=== PATIENT | male | born 1940 | race Caucasian/White ===

== ENCOUNTER 2024-08-10 12:20 | Emergency (ER) | payer MEDICARE, SELFPAY ==
[2024-08-10] VITALS (15 sets, daily range): BP systolic 137–161; BP diastolic 70–85; PULSE 60–67; RESP 12–20; TEMP 36.4; O2SAT 99–100
--- NOTE | ~2024-08-10 | CT_ITS ---
EXAMINATION: CT brain wo con DATE: 08/10/2024 13:06 INDICATION: Double vision TECHNIQUE: Computed tomography (CT) of the head was performed without intravenous contrast. Sagittal and coronal reconstructions were performed. The mA was adjusted according to patient size. Iterative reconstruction technique was employed. The dose-length product was 756.67 mGy-cm. 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 No acute intracranial hemorrhage, acute infarction or abnorm al extra axial fluid collection. There is moderate scattered white matter hypoattenuation consistent with chronic small vessel ischemic disease.. Symmetric prominence of the sulci consistent with modera te age-appropriate diffuse cerebral volume loss. Ventricles are normal and symmetric. No mass/mass e ffect. The orbits, paranasal sinuses and mastoid air cells are normal. Intracranial calcified cerebra l atherosclerosis is noted. IMPRESSION: 1. Aging brain with small old lacunar infarct at the right insula. No acute intracranial process. Reviewed, dictated and finalized at location A. IMPRESSION: 1. Aging brain with small old lacunar infarct at the right insula. No acute int racranial process.
--- NOTE | ~2024-08-10 | XR_ITS ---
EXAMINATION: XR chest 1V portable DATE: 08/10/2024 13:26 INDICATION: Dizziness TECHNIQUE: frontal view of the chest was obtained. COMPARISON: Chest radiograph dated 08/21/[address] dated FINDINGS: The lungs are clear with no focal airspace opacities, pulmonary edema, pleural effusion or pneumothor ax. The cardiomediastinal silhouette is within normal limits for AP technique. Dual lead pacemaker se en with leads projecting over the expected locations of the right atrium and right ventricle. IMPRESSION: 1. No acute cardiopulmonary disease. Reviewed, dictated and finalized at location A.
--- NOTE | 2024-08-10 12:33 | ECG_ITS ---
Test Date: 2024-08-10 12:49:37 Measurements Intervals [place] Rate: 60 P: 0 MO: 0 QRS: -48 QRSD: 213 T: 140 QT: 516 QTc: 518 Interpretive Statements ELECTRONIC VENTRICULAR PACEMAKER ABNORMAL RHYTHM ECG No previous ECG available for comparison Electronically Signed On 08-10-2024 15:34:23 CDT by Jesus Cole M.D.
--- NOTE | 2024-08-10 12:36 | ED.DIZZY ---
HPI - Dizziness General Chief Complaint: Dizziness Stated Complaint: Dizziness-double vision, slow speech Time Seen by Provider: 08/10/24 12:33 History of Present Illness HPI Narrative: 84-year-old male with a past medical history including chronic atrial fibrillation on Eliquis, hypertension, pacemaker. No history of diabetes. Patient presents to the emergency department chief complaint of blurry vision out of both eyes. Symptoms going on for several days according to the patient and family member. Patient denies any head trauma or injury. Did have a skin lesion biopsied several days ago and he mentioned the symptoms to his daughter. Patient was brought back for evaluation of blurry vision and also states he is feeling dizziness but denies any room spinning sensations. No chest pain or shortness a breath, nausea, vomiting, headache, abdominal pain or back pain. No sensory changes, no facial paralysis. Was otherwise in her normal state of health. Did take his Eliquis this morning. Related Data Allergies Allergy/AdvReac Type Severity Reaction Status Date / Time Iodinated Contrast Media Allergy Intermediate Rash Verified 08/10/24 12:54 Sulfa (Sulfonamide Allergy Intermediate Rash Verified 08/10/24 12:54 Antibiotics) Review of Systems Review of Systems: As reviewed above in HPI Exam Narrative: GENERAL: [Well-appearing, well-nourished, and in no acute distress.] HEAD: [Normocephalic, atraumatic.] EYES: [PERRLA and EOMI.] ENT: Nares clear, no rhinorrhea or epistaxis. Mucous membranes moist. NECK: Supple. CHEST: [Clear to auscultation. No respiratory distress.] HEART: [Regular rate and rhythm]. No murmur heard. [Normal peripheral pulses.] ABDOMEN: [Soft, nondistended], [nontender], [No rigidity or guarding] EXTREMITIES: Normal range of motion. [No edema.] SKIN: Warm, dry, no rash. NEURO: [No focal deficits]. Alert and oriented [x3.]. NIH stroke scale 0. Full peripheral clay, normal strength and sensation throughout both arms and legs, no ataxia in the arms or legs, answers all questions appropriately, no aphasia or dysphagia, no dysarthria. PSYCH: [Normal mood and affect.] Course Vital Signs Vital signs: Vital Signs Temperature 36.4 C L 08/10/24 12:37 Pulse Rate 62 08/10/24 12:37 Respiratory Rate 20 08/10/24 12:37 Blood Pressure 137/72 08/10/24 12:37 Pulse Oximetry 100 08/10/24 12:37 Oxygen Delivery Room Air 08/10/24 12:37 Temperature 36.4 C L 08/10/24 12:37 Pulse Rate 61 08/10/24 16:45 Respiratory Rate 19 08/10/24 16:45 Blood Pressure 161/85 H 08/10/24 16:45 Pulse Oximetry 100 08/10/24 16:45 Oxygen Delivery Room Air 08/10/24 12:37 MDM - Dizziness MDM Narrative Medical decision making narrative: 84-year-old male with history of chronic AFib on anticoagulation with Eliquis, hypertension, pacemaker. Patient presents to the emergency department with chief complaint of some blurry vision of both eyes associated some dizziness. Denies any room spinning sensations, headache, nausea, vomiting, trauma neck pain, abdominal pain, back pain, chest pain. He was otherwise in his normal state of health. Daughter was worried about his blurry vision that could be potentially a stroke but visual deficits other or both eyes and he has an NIH stroke scale 0 during my initial assessment at time arrival. Symptoms going on for several days. Patient did mention to his daughter to make him an eye appointment as he was having visual problems a few days ago but this was not established yet. Patient does have what he describes as some blurriness to his distal vision and denies any history of glaucoma but daughter thinks he has cataracts. No ocular surgeries in the past. His stroke assessment is unremarkable with an NIH is 0, brought back in to room 13. For evaluation. Suspicion presently is for potential electrolyte disturbances, dehydration, diabetes, hypertension, less likely intracranial pathology such as stroke, bleed or mass. Your infection or other infectious process possible. Dysrhythmia possible especially with his history of AFib. CBC, CMP, troponin, EKG, chest x-ray, urinalysis and CT of the head was ordered. Patient was placed on surveillance monitor and re-evaluated frequently. Patient's workup was reassuring there is no leukocytosis or significant anemia. Normal platelet count. Normal INR, electrolytes are largely unremarkable, minor hypokalemia 3.2 but not significant. Normal glucose, normal alk-phos, ALT and AST, mildly elevated bilirubin. Negative troponin. Normal TSH. Urinalysis has some white blood cells and leukocyte esterase as well as some urinary casts the patient has no convincing signs or symptoms of urinary infection so we will elect not to treat this at this time. CT scan shows aging brain but no acute intracranial process. Small old lacunar infarct. Chest x-ray shows no acute cardiopulmonary disease. EKG shows ventricular paced rhythm, no Sgarbossa criteria for acute SC. Patient remains without any acute neurological symptoms and can be safely discharged home with follow-up with his PCP and encouraged to follow with an mobile application tester or materials tech for his visual concerns. Family agreeable with this and comfortable with the plan. Medical Records Attestation: I reviewed the patient's medical records. Lab Data Attestation: I reviewed the patient's lab results. 08/10/24 12:47 08/10/24 12:47 Labs: Lab Results 08/10/24 08/10/24 Range/Units 12:47 15:07 WBC 6.5 (4.5-10.0) K/mm3 RBC 3.78 L (4.6-6.20) M/mm3 Hgb 12.0 L (14.0-18.0) g/dL Hct 38.4 L (42.0-52.0) % MCV 101.6 H (80-100) fl MCH 31.7 (26-34) pg MCHC 31.3 L (32-36) g/dl RDW 13.2 (11.5-14.5) % Plt Count 189 (150-375) k/mm3 MPV 10.1 (7.4-10.4) fl Immature Gran % (Auto) 0.2 (0-0.5) % Neut % (Auto) 70.7 (45.5-73.1) % Lymph % (Auto) 17.7 L (18.3-44.2) % [place] % (Auto) 8.8 H (2.6-8.5) % Eos % (Auto) 2.3 (0-4.4) % Baso % (Auto) 0.3 (0.2-1.2) % Lymph # (Auto) 1.15 (0.9-3.2) K/mm3 [place] # (Auto) 0.6 (0.1-0.6) K/mm3 Eos # (Auto) 0.2 (0-0.3) K/mm3 Baso # (Auto) 0.0 (0.0-0.1) K/mm3 Abs Immat Gran (auto) 0.01 (0.00-0.031) K/mm3 Absolute Neuts (auto) 4.6 (1.3-6.7) K/mm3 Absolute Nucleated RBC 0.000 (0.0-0.012) K/mm3 Nucleated RBC % 0.0 (0.0-0.2) % PT 16.7 H (11.1-14.7) Seconds INR 1.3 APTT 32.1 (22.3-36.8) Seconds Sodium 140 (137-145) mmol/L Potassium 3.2 L (3.4-5.0) mmol/L Chloride 102 (98-107) mmol/L Carbon Dioxide 30 (22-30) mmol/L Anion Gap 8 (4-12) mmol/L BUN 20 (9-20) mg/dL Creatinine 0.91 (0.7-1.3) mg/dL Estim Creat Clear Calc 61 ml/min Estimated GFR > 60 (59 - ) Glucose 118 H (65-110) mg/dL Calcium 8.7 (8.4-10.2) mg/dL Total Bilirubin 1.7 H (0.2-1.3) mg/dL AST 22 (17-59) U/L ALT 10 (6-50) U/L Alkaline Phosphatase 97 (38-126) U/L Troponin I < 0.012 (0.000-0.034) ng/mL Total Protein 6.0 L (6.3-8.2) g/dL Albumin 3.6 (3.5-5.1) g/dL TSH (Reflex) 0.854 (0.465-4.68) uIU/mL Urine Color Yellow (Yellow) Urine Appearance Clear (Clear) Urine pH 5.5 (5.0-9.0) Ur Specific [place] 1.015 (1.001-1.035) Urine Protein Negative (Negative) mg/dL Urine Glucose (UA) Negative (Negative) mg/dL Urine Ketones Trace H (Negative) mg/dL Ur Blood (Man) Negative (Negative) Urine Nitrate Negative (Negative) Urine Bilirubin Negative (Negative) Urine Urobilinogen 1.0 (<2.0) mg/dL Leukocyte Esterase Rfl 1+ H (Negative) ANA/UL Urine RBC 0-2 (0-2) /hpf Urine WBC 6-10 H (0-3) /hpf Ur Squamous Epith Cells None seen (Few) /hpf Urine Bacteria None seen /hpf Urine Casts 6-10 Hyaline Casts Present (None) /lpf Imaging Data Attestation: I personally reviewed and interpreted this imaging study as follows: My impression: Impressions Head CT 08/10/24 13:11 IMPRESSION: 1. Aging brain with small old lacunar infarct at the right insula. No acute intracranial process. Chest X-Ray 08/10/24 13:30 IMPRESSION: 1. No acute cardiopulmonary disease. Discharge Plan Discharge Clinical Impression: Blurred vision, bilateral Patient Disposition: Home Condition: Stable Instructions: Antibiotic Form, Blurred Vision (ED) Additional Instructions: Follow-up with an materials tech or mobile application tester. Return with any emergent concerns. Your CT scan shows no acute findings, laboratory studies are all reassuring, cardiac workup was unremarkable. No evidence of diabetes, no signs of infection. Return with any emergent concerns such as unilateral facial weakness, numbness in the arms, inability to walk, loss of consciousness, facial droop, vision loss, weakness in one side of the body. Patient Language: Bhutanese Follow-up/Referrals: Jonas,Min Wilkes MD [Primary Care Provider] - Time of Disposition: 16:18
[2024-08-10 12:54] LABS: Basophils Percent Auto 0.3 % (0.2-1.2); Eosinophils Absolute Auto 0.2 K/mm3 (0-0.3); Eosinophils Percent Auto 2.3 % (0-4.4); Hematocrit 38.4 % (42.0-52.0); Immature Granulocyte Absolute 0.01 K/mm3 (0.00-0.031); Immature Granulocyte Percent A 0.2 % (0-0.5); Lymphocytes Absolute Auto 1.15 K/mm3 (0.9-3.2); Lymphocytes Percent Auto 17.7 % (18.3-44.2); Mean Corpuscular HGB Conc 31.3 g/dl (32-36); Mean Corpuscular Hemoglobin 31.7 pg (26-34); Mean Corpuscular Volume 101.6 fl (80-100); Mean Platelet Volume 10.1 fl (7.4-10.4); Monocytes Absolute Auto 0.6 K/mm3 (0.1-0.6); Monocytes Percent Auto 8.8 % (2.6-8.5); Neutrophils Absolute Auto 4.6 K/mm3 (1.3-6.7); Neutrophils Percent Auto 70.7 % (45.5-73.1); Platelet Count Result 189 k/mm3 (150-375); Red Blood Count 3.78 M/mm3 (4.6-6.20); Red Cell Distribution Width 13.2 % (11.5-14.5); White Blood Count 6.5 K/mm3 (4.5-10.0)
--- OUTSIDE RECORDS SUMMARY | 2024-08-10 12:57 | XMS_ITS ---
Author Organization [facility] Address [address] [place] [address] Care Team Providers Care Database Administrator Name Role Phone Min Mcdaniel MD Primary Care Provider [phone] Porfirio Ronquillo MD Unavailable [phone] Sanjeev León MD Unavailable Porfirio Ronquillo MD Unavailable Carlos Moya MD Unavailable Gabriel Tanner OD Unavailable Active Problems Problem Noted Date Diagnosed Date Parkinson's disease 09/28/2023 CATRACHITO (obstructive sleep apnea) 08/31/2023 Acute kidney failure, unspecified 08/12/2023 ANJANA (acute kidney injury) 08/10/2023 Orthostatic hypotension 08/10/2023 Chronic atrial fibrillation 08/10/2023 Near syncope 08/09/2023 Fall 08/09/2023 Acquired absence of other sp ecified parts of digestive tract 04/03/2023 Chronic kidney disease, unspecified 04/03/2023 Heart failure, unspecified 04/03/2023 Hypertensive heart and chron ic kidney disease with heart failure and stage 1 through stage 4 chronic kidney disease, or unspecified chronic kidney disease 04/03/2023 Nonrheumatic aortic (valve) insufficiency 01/01/ 2024 Polyosteoarthritis, unspecified 04/03/2023 Pure hypercholesterolemia, unspecified 4 Permanent atrial fibrillation 04/03/2023 Atrioventricular block, complete 04/03/2023 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 Assessment & Plan (04/20/2020 1:55 PM MEAT MOLDER): Well controlled on current statin therapy diet, continue Iliac artery aneurysm, right 01/22/2020 Assessment & Plan (01/22/2020 11:42 AM CDT): Stable. Repeat Duplex in one year. Ectatic abdominal aorta 01/22/2020 Assessment & Plan (01/22/2020 11:42 AM CDT): Associated with chronic distal aortic dissection. Stable. Repeat aortic Duplex in one year. Asymptomatic bilateral carotid artery stenosis 1 Assessment & Plan (01/22/2020 11:43 AM CDT): Minimal and asymptomatic. Repeat carotid Doppler in two years for observation. Chronic diastolic CHF (congestive heart failure) 10/21/2019 Assessment & Plan (04/20/2020 1:54 PM MEAT MOLDER): No exertional symptoms but some orthopnea, check BMP. Continue current diuretic regimen pending follow-up BMP. Assessment & Plan (10/21/2019 1:45 PM CDT): Symptomatic in improvement with furosemide, over, appears to be a bit on the dry side. Will switch him to every other day. Coronary artery disease of n ative artery of [place] heart with stable angina pectoris 10/31/2018 Assessment & Plan (10/19/2020 1:11 PM CDT): No angina on current therapy the setting of angiographically moderate multivessel disease. Continue statin Assessment & Plan (04/20/2020 1:55 PM MEAT MOLDER): No angina on current medical therapy setting of moderate multivessel coronary disease, continue aspirin statin Assessment & Plan (10/21/2019 1:45 PM CDT): No angina on current medical therapy the setting previously moderate multivessel coronary disease. Continue aspirin. Statin Assessment & Plan (10/31/2018 10:34 AM CDT): Patient underwent a cardiac catheterization October 16, 2018 which revealed a moderately elevated LVEDP of 29, EF 55%, and moderate multivessel coronary artery disease. At that time medical management was recommended with the addition of diuretic therapy. His verapamil was discontinued and he was started on metoprolol 50 mg XL daily and Lasix 40 mg daily. He is also currently taking aspirin, enalapril, and pravastatin. Will switch to high-intensity statin therapy with Crestor 20 mg daily. Continue current therapy. Dyspnea on exertion 10/31/2018 Assessment & Plan (10/31/2018 10:43 AM CDT): Patient reports improvement of his dyspnea on exertion since starting diuretic therapy. He reports he was taking 40 mg of Lasix daily. However, he noticed he had diarrhea after the initiation of this medication. He tells me he was taking 20 mg in the morning and 20 mg in the evening, which seemed to help with his upset stomach. He reports a reduction in lower extremity edema, abdominal edema, and dyspnea on exertion. We talked at length about use of diuretic therapy. At this time, we discussed reducing his dose to 20 mg daily. If he feels as if his abdominal swelling, lower extremity edema, or shortness of breath returns he can increase his dosing to b.i.d as needed. Patient was instructed to undergo a BMP last week. However, when reviewing these results in [facility] it is noted that the lab was canceled due to the specimen spilling in transit. Will obtain BMP today to evaluate electrolytes and renal function. Nonspecific abnormal function study, cardiovascu lar 10/11/2018 Overview (10/11/2018): Added automatically from request for surgery [id number] Pacemaker 08/28/2018 Overview (08/28/2018): [employer] DDD [place] MRI pacemaker implanted on 08/27/18 for CHB. [place] - [employer] Complete heart block 08/26/2018 Assessment & Plan (10/19/2020 1:11 PM CDT): Doing well permanent pacing Assessment & Plan (04/20/2020 1:54 PM MEAT MOLDER): Doing well permanent pacing Assessment & Plan (10/21/2019 1:45 PM CDT): Doing well permanent pacing. Hopefully will have improved exercise tolerance with the addition rate responsiveness. Assessment & Plan (10/31/2018 10:34 AM CDT): Patient underwent a dual chamber pacemaker August 27, 2018. His device is functioning properly. Assessment & Plan (10/08/2018 2:22 PM CDT): Post permanent pacemaker, doing well, device interrogation follow Renal cell carcinoma of right kidney 08/26/2018 Primary hypertension 07/03/2018 Assessment & Plan (10/31/2018 10:35 AM CDT): Patient remains hypertensive on this visit with an initial BP of 166/80 and subsequent BP 160/78. He reports he has not taken his metoprolol this morning. He generally takes his medication around 11:00 am with his first meal of the day. I asked the patient to keep a log of blood pressures at home and call the office in 2 weeks with readings. Continue enalapril and metoprolol. Symptomatic cholelithiasis 07/03/2018 Benign prostatic hyperplasia with weak urinary s tream 07/03/2018 Alternating constipation and diarrhea 07/03/2018 Elevated parathyroid hormone 09/20/2017 BPH (benign prostatic hyperplasia) 02/02/2017 Elevated PSA 02/02/2017 Vitamin D deficiency 02/02/2017 Hyperlipidemia 02/02/2017 Essential hypertension 02/02/2017 Overview (07/12/2024): Last Assessment & Plan: Patient remains hypertensive on this visit with an initial BP of 166/80 and subsequent BP 160/78. He reports he has not taken his metoprolol this morning. He generally takes his medication around 11:00 am with his first meal of the day. I asked the patient to keep a log of blood pressures at home and call the office in 2 weeks with readings. Continue enalapril and metoprolol. Dizziness Current Treatment and Therapy Plans No current plan information found. Past Treatment and Therapy Plans No past plan information found. Lifetime Dose Tracking * Chemical Lifetime Dose Automatic Entry Manual Entr y Air kerma at the reference point (Ka,r) 655 mGy 0 mGy 655 mGy DLP 215 mGycm 215 mGycm 0 mGycm Resolved Problems Problem Noted Date Diagnosed Date Resolved Date Asymptomatic stenosis of left carotid artery 9 01/22/2020 Assessment & Plan (01/16/2019 9:57 AM CDT): Monitor with annual Doppler study. Will coordinate his visits to include aortic/iliac scan + carotid Doppler scan. He'll return in Fall 2019 for both studies. Aneurysm of common iliac artery 07/25/2018 01/22/2020 Assessment & Plan (01/16/2019 9:56 AM CDT): Stable right KIRILL aneurysm. Monitor with repeat Duplex scan in one year.
--- OUTSIDE RECORDS SUMMARY | 2024-08-10 12:57 | XMS_ITS | Clinical Summary ---
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 Gender Identity Not on file Sexual Orientation Not on file Plan of Treatment Health Maintenance Due Date Last Done Comments Hepatitis C Virus (HCV) Screening 1940 TdaP Immunization 1940 Pneumococcal Immunization (5 0+ years) (1 of 1 - PCV) 1989 Zoster Immunization (1 of 2) 1989 Respiratory Syncytial Virus (RSV) Immunization (Adult) (1 - 1-dose 75+ series) 2014 Influenza Immunization (#1) 2023 SARS-COV-2 Immunization ( season) 2023 Hepatitis B Immunization Aged Out No longer eligible based on patient's age to complete this topic Meningococcal Immunization (ACWY) Aged Out No longer eligible based on patient's age to complete this topic Rotavirus Immunization Aged Out No lo nger eligible based on patient's age to complete this topic
--- OUTSIDE RECORDS SUMMARY | 2024-08-10 12:57 | XMS_ITS | Encounter Summary ---
Author Organization [facility] Address [facility] [place] [address] Care Team Providers Care Transfer Engineer Name Role Phone Min Mcdaniel MD Primary Care Provider [phone] Alicia Davis GUIDE WINDER Unavailable [phone] Encounter Details Date Type Department Care Team (Late Contact Info) Description 09/28/2022 MyChart Message Enc [facility] Medical [facility] [address] [place], [place] [id number] [facility] Provider Air Quality Message Social History Tobacco Use Types Packs/Day Years Used Date Smoking Tobacco: Former Cigarettes 0 04/03/1962 - 04/03/1977 Smokeless Tobacco: Never Alcohol Use Standard Drinks/Week Comments Not Currently 0 (1 standard drink = 0.6 oz pur e alcohol) AUDIT-C Answer Date Recorded Frequency of Alcohol Consumption Never 04/05/2018 Average Number of Drinks Not on file 019 Frequency of Binge Drinking Not on file 06/2018 PHQ-2 Answer Date Recorded Patient Health Questionnaire-2 Score 0 04/05/2022 Sex and Gender Information Value Date Recorded Sex Assigned at Male 04/05/2018 2:26 PM GUEST RELATIONS ASSOCIATE Legal Sex Male 7:26 PM CDT Gender Identity Male 04/05/2018 2:26 PM GUEST RELATIONS ASSOCIATE Sexual Orientation Straight 04/05/2018 2: 26 PM GUEST RELATIONS ASSOCIATE documented as of this encounter Plan of Treatment Upcoming Encounters Date Type Department Care Team (Late Contact Info) Description 08/12/2024 8:40 AM CDT Laboratory Only [facility] Medical [facility] [place] [phone] Min Mcdaniel MD [address] [place] [address] 01/06/2025 8:40 AM CDT Office Visit [facility] [address] [facility], [address] [place] [address] Jesusita Cespedes MD [address] [place] [address] 02/10/2025 10:00 AM GUEST RELATIONS ASSOCIATE Office Visit [facility] [place] [address] [place] [address] [place] [address] [place] [id number] documented as of this encounter Goals Goal Patient Goal Type Associated Problems Recent Progress Patient-Stated? Author Establish Plan for Symptom Monitoring CHF Lifestyle On track(2022 2:12 PM GUEST RELATIONS ASSOCIATE) No Jackie Matthew, RN Note: CHF: Patient will recognize symptoms of CHF and report to provider. Daily weight. Report weight gain of > 3 lbs overnight or > 5 lbs in a week Maintain 48 oz fluid restriction Call physician if you experience worsening shortness of breath, edema, fatigue, or cough Take medications as prescribed. Follow up with physician appointments as scheduled. Don't stop taking any of your medications or start taking any medications without discussing with your provider. Establish Plan for Symptom Monitoring Afib Lifestyle On track(2022 2:12 PM GUEST RELATIONS ASSOCIATE) Jackie Obregon, RN Note: Atrial Fibrillation: Patient will recognize symptoms of atrial fibrillation and report to physician should they occur. Take your medicines exactly as directed. Don't skip doses. Learn to take your own pulse. Keep a record of your results. Ask your doctor which pulse rates mean that you need medical attention. Limit your intake of coffee, tea, cola, and other drinks with caffeine. Talk with your doctor about whether you should cut out caffeine. Don't take boja-zbn-[id number] medicines that have caffeine in them. Also avoid medicines with pseudoephedrine. Let your doctor know what medicines you take, including prescription and bfty-abv-wftffpa medicines, as well as any supplements. They interfere with some medicines given for AFib. Establish Plan for Symptom Monitoring COPD Lifestyle On track(2022 2:12 PM GUEST RELATIONS ASSOCIATE) Jackie Obregon, RN Note: COPD: Patient will recognize symptoms of COPD exacerbation and report to the physician. If severe, patient will seek emergent treatment at [facility] or ER. Notify your provider if you have any of the following symptoms: Worsening shortness of breath at rest or with activity Frequent coughing, productive or nonproductive Wheezing Noisy breathing Tightness in the chest Tiredness Weight loss. Follow up with your provider as scheduled Take your medications as prescribed Do not stop any of your medications without notifying provider documented as of this encounter Visit Diagnoses Not on filedocumented in this encounter Care Teams Transfer Engineer Relationship Specialty Start Date End Date Min Mcdaniel MD [address] [place] [address] [phone] PCP - General INTERNAL MEDICINE 01/31/18 Alicia Davis, GUIDE WINDER [address] [place] [address] Seconds Grader [employer] OFFICER 07/07/22 documented as of this encounter
--- OUTSIDE RECORDS SUMMARY | 2024-08-10 12:57 | XMS_ITS | Encounter Summary ---
Author Organization [facility] - [facility] Address [facility] [place] [address] Care Team Providers Care Director Of Partner Marketing Name Role Phone Min Mcdaniel MD Primary Care Provider [phone] Alicia Davis MAT MAKER Unavailable Encounter Details Date Type Department Care Team (Late Contact Info) Description 12/22/2023 TapToLearn Message Enc [facility] Multispecialty Care - [address], [address] [place] [address] Juliette, [facility] Provider MRI results Social History Tobacco Use Types Packs/Day Years Used Date Smoking Tobacco: Former Cigarettes 0 04/03/1962 - 04/03/1977 Smokeless Tobacco: Never Comments:Non smoker Alcohol Use Standard Drinks/Week Comments Not Currently 0 (1 standard drink = 0.6 oz pur e alcohol) AUDIT-C Answer Date Recorded Frequency of Alcohol Consumption Never 04/05/2018 Average Number of Drinks Not on file 019 Frequency of Binge Drinking Not on file 06/2018 PHQ-2 Answer Date Recorded Patient Health Questionnaire-2 Score 0 04/26/2023 Sex and Gender Information Value Date Recorded Sex Assigned at Male 04/05/2018 2:26 PM TABLE FILLER Legal Sex Male 7:26 PM CDT Gender Identity Male 04/05/2018 2:26 PM TABLE FILLER Sexual Orientation Straight 04/05/2018 2: 26 PM TABLE FILLER documented as of this encounter Plan of Treatment Upcoming Encounters Date Type Department Care Team (Late Contact Info) Description 08/12/2024 8:40 AM CDT Laboratory Only [facility] - [place] [place] [address] [place] [address] [place] [address] 01/06/2025 8:40 AM CDT Office Visit [facility] - [facility] [address] [facility], [address] [place] [address] Jesusita Cespedes MD [address] [place] [address] 02/10/2025 10:00 AM TABLE FILLER Office Visit [facility] - [address] [address] Min Mcdaniel MD [address] [place] [address] documented as of this encounter Goals Goal Patient Goal Type Associated Problems Recent Progress Patient-Stated? Author Establish Plan for Symptom Monitoring CHF Lifestyle On track(2022 2:12 PM TABLE FILLER) No Jackie Matthew RN Note: CHF: Patient will recognize symptoms [...] Monitoring Afib Lifestyle On track(2022 2:12 PM TABLE FILLER) No Jackie Matthew RN Note: Atrial Fibrillation: Patient will recognize [...] you should cut out caffeine. Don't take ujfo-qjy-kiyhihv medicines that have caffeine in them. Also avoid medicines with pseudoephedrine. Let your doctor know what medicines you take, including prescription and rveq-wyd-hbthomd medicines, as well as any supplements. They interfere with some medicines given for AFib. Establish Plan for Symptom Monitoring COPD Lifestyle On track(2022 2:12 PM TABLE FILLER) Jackie Obregon RN Note: COPD: Patient will recognize symptoms [...] on filedocumented in this encounter Care Teams Director Of Partner Marketing Relationship Specialty Start Date End Date Min Mcdaniel MD [address] [place] [address] PCP - General INTERNAL MEDICINE 01/31/18 Alicia Davis, MAT MAKER [address] [place] [address] Car Wash Attendant HOUSE DIRECTOR 07/07/22 documented as of this encounter
--- OUTSIDE RECORDS SUMMARY | 2024-08-10 12:57 | XMS_ITS | Encounter Summary ---
Author Organization [facility] Address [address] [place] [address] Phone Care Team Providers Care Manager Of Employee Relations Name Role Phone Min Mcdaniel MD Primary Care Provider Porfirio Ronquillo MD Unavailable Sanjeev León MD Unavailable Porfirio Ronquillo MD Unavailable Carlos Moay MD Unavailable [phone] Gabriel Tanner OD Unavailable Encounter Details Date Type Department Care Team (Late st Contact Info) Description 07/12/2024 Results Follow-Up [facility] [address] [place] [address] Nabil Wagner MD [address] [facility] [address] [place] [address] Social History Tobacco Use Types Packs/Day Years Used Date Smoking Tobacco: Former Cigarettes 0.5 29.5 1 960 - 10/16/1988 Passive Smoke Exposure: Never Smokeless Tobacco: Never Alcohol Use Standard Drinks/Week Comments Yes 0 (1 standard drink = 0.6 oz pur e alcohol) occasionally [facility] Utilities Answer Date Recorded In the past 12 months has th e [employer], gas, oil, or water company threatened to shut off services in your home? No 08/10/2023 AUDIT-C Answer Date Recorded Q1: How often do you have a drink containing alc ohol? Monthly or less 08/09/2022 Q2: How many drinks containi ng alcohol do you have on a typical day when you are drinking? 1 or 2 08/09/2022 Q3: How often do you have si x or more drinks on one occasion? Never 08/09/2022 Overall Financial Resource Strain (CARDIA) Answe r Date Recorded How hard is it for you to pa y for the very basics like food, housing, medical care, and heating? Not very hard 08/10/2023 Hunger Vital Sign Answer Date Recorded Within the past 12 months, y ou worried that your food would run out before you got the money to buy more. Never true 08/10/19 24 Within the past 12 months, t he food you bought just didn't last and you didn't have money to get more. Never true 08/10/2023 PRAPARE - Transportation Answer Date Re corded In the past 12 months, has l ack of transportation kept you from medical appointments or from getting medications? No 12/2023 In the past 12 months, has l ack of transportation kept you from meetings, work, or from getting things needed for daily living? No 08/10/2023 Housing Stability Vital Sign Answer Polo e Recorded In the last 12 months, was t here a time when you were not able to pay the mortgage or rent on time? No 08/10/2023 In the last 12 months, how many places have you lived? 1 08/10/2023 In the last 12 months, was t here a time when you did not have a steady place to sleep or slept in a penitentiary (including now)? No 08/10/2023 Personal Safety Answer Date Recorded Have you ever been in or are you currently in a harmful physical or emotional relationship or is someone making you feel afraid or unsafe? Denies 08/09/2023 Sex and Gender Information Value Date Recorded Sex Assigned at Not on file Legal Sex Male 9:30 PM CO FOUNDER & CEO Gender Identity Not on file Sexual Orientation Not on file documented as of this encounter Plan of Treatment Not on file documented as of this encounter Visit Diagnoses Not on filedocumented in this encounter Care Teams Manager Of Employee Relations Relationship Specialty Start Date End Date Min Mcdaniel MD [address] [place] [address] PCP - General 07/02/18 Porfirio Ronquillo MD [address] [place] [address] Referring Physician Surgery 07/25/18 Sanjeev León MD [address] [place] [address] Consulting Physician Cardiology 08/28/18 Porfirio Ronquillo MD [address] [place] [address] Referring Physician Surgery 01/22/20 Carlos Moya MD [address] [place] [address] Ophthalmology 08/31/22 Gabriel Tanner OD [address] [place] [address] Optometry 11/02/22 documented as of this encounter
--- OUTSIDE RECORDS SUMMARY | 2024-08-10 12:58 | XMS_ITS | Encounter Summary ---
Author Organization [facility] Address [address] [place] [address] Care Team Providers Care Automotive Glazier Name Role Phone Larry Bustamante MD Primary Care Provider [phone] Min Mcdaniel MD Primary Care Provider [phone] Encounter Details Date Type Department Care Team (Late st Contact Info) Description 01/24/2018 Lab Requisition [facility] Care D[facility] Lab [address] [facility], [place] [address] Kate Melton MD [address] [facility] 3 [place] [address] Social History Tobacco Use Types Packs/Day Years Used Date Smoking Tobacco: Never Assessed Sex and Gender Information Value Date Recorded Sex Assigned at Not on file Legal Sex Male 1:58 PM CDT Gender Identity Not on file Sexual Orientation Not on file documented as of this encounter Plan of Treatment Not on file documented as of this encounter Procedures Procedure Name Priority Date/Time Associated Diagnosis Comments DERMATOPATH TECHNICAL REPORT Routine 01/22/2018 12:00 AM CDT documented in this encounter Results * DERMATOPATH TECHNICAL REPORT (01/22/2018 12:00 AM CDT) Case Report Dermatopathology Report Case: [id number] Authorizing Provider: Kate Melton MD Collected: 01/22/2018 12:00 AM Pathologist: Radha Escalante MD Received: 01/24/2018 06:17 AM Specimens: A) - Skin, left nosebridge B) - Skin, right forehead 12:09 PM [facility] DERMATOP[facility]Y [facility]ORATORY Addendum 1 At the request of the diagnosing physician, the technical component for MART-1/Melan A on Specimen B was performed by [facility]. 12:09 PM [facility] DERMATOPATH[facility]Y [facility]OR[facility] Addendum electronically signed by Radha Escalante MD on 01/26/2018 at 12:09 PM Clinical History A: R/O BCC. Eroded pink papule. B: Lentigo vs LM. Brown macule. 12:09 PM [facility] DERMATOPATHOLOGY [facility]OR[facility] Gross Description Specimen A: Received is one formalin filled container labeled with the patient's name and designated left nosebridge. The specimen consists of a shave measuring [id number]. Jar 0. Specimen B: Received is one formalin filled container labeled with the patient's name and designated right forehead. The specimen consists of a shave measuring [id number]. Jar 0. [facility] performed the technical component only. 12:09 PM [facility] DERMATOP[facility] Embedded Images 12:09 PM [facility] DERMATOPATH[facility] DISCLAIMER An external and internal positive and negative controls are appropriate for the histochemical, immunohistochemical and immunofluorescence stain(s) in this case (if any), except where stated explicitly. The performance characteristics of the stain(s) cited in this report were developed and its performance characteristic determined by the Dermatopathology Laboratory at [facility]. These tests need not be, and therefore are not, approved by the [place] Food and Drug Administration. The tests are used for clinical purposes. 12:09 PM [facility] DERMATOPATHOLOGY LABORATORY Pathology/Cytology TISSUE SPECIMEN FROM SKIN / Unknown 01/22/2018 01/24/2018 6:17 AM CDT Miscellaneous samples (specimen) TISSUE SPECIMEN FROM SKIN / Unknown 01/22/2018 01/24/2018 6:17 AM CDT us Kate Melton MD LAB - PATHOLOGY/CYTOLOGY ORD ERABLES Edited Result - Final DERMATOPATHOLOGY LABORATORY [facility] - Department of Dermatology [address] 5[address] Floor Lab [address] [phone] documented in this encounter Visit Diagnoses Not on filedocumented in this encounter Care Teams Automotive Glazier Relationship Specialty Start Date End Date Larry Bustamante MD [address] [place] [address] PCP - General 01/22/18 02/12/18 Min Mcdaniel MD [address] [place] [address] PCP - General 02/13/18 documented as of this encounter
--- OUTSIDE RECORDS SUMMARY | 2024-08-10 12:58 | XMS_ITS | Encounter Summary ---
Author Organization [facility] Address [address] [place] [address] Care Team Providers Care Pipe Fitter Ammonia Name Role Phone Larry Bustamante MD Primary Care Provider [phone] Min Mcdaniel MD Primary Care Provider [phone] Encounter Details Date Type Department Care Team (Late st Contact Info) Description 02/12/2018 Lab Requisition [facility] Care DermPath Lab [address] [facility], [place] [address] Roxana Palacio MD [address] [facility] 3 [place] [address] Social History Tobacco Use Types Packs/Day Years [...] Procedure Name Priority Date/Time Associated Diagnosis Comments DERMPATH SLIDE CONSULT Routine 02/12/2018 12:00 AM CREATIVE SERVICES INTERN documented in this encounter Results * DERMPATH SLIDE CONSULT (02/12/2018 12:00 AM CREATIVE SERVICES INTERN) Case Report Dermatopathology Report Case: [id number] Authorizing Provider: Rxoana Palacio MD Collected: 02/12/2018 12:00 AM Pathologist: Ashley Reynoso MD Received: 02/12/2018 01:14 PM Specimen: Slide(s), Left nosebridge, Right forehead, [id number]# [id number] 2:32 PM [facility] DERMATOPATHOLOGY LABORATORY Final Diagnosis Specimen A1. 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 Kay Zavala, a consult will be performed on 2 slide(s) labeled [id number]. Superficially invasive squamous cell carcinoma, arising within an actinic keratosis. All slides returned. A2: Received at the request of Dr. Kay Zavala, a consult will be performed on 3 slide(s) labeled [id number]. -Malignant melanoma, lentigo maligna subtype. -Breslow thickness 0.5mm, stiven III -Present at margin. All slides returned. Appt date: 02/13/2018 Any additional sections, special stains or immunohistochemical stains performed by our laboratory will be kept here on file. 2:32 PM [facility] DERMATOPATHOLOGY LABORATORY Microscopic Description Specimen A1. Slide(s), Left nosebridge, OSC# [id number]: Sections reveal parakeratosis, acanthosis and keratinocyte dysmaturation which is most prominent in the lower epidermis. Focal nests are present in the dermis. Specimen A2. Slide(s), Right forehead, OSC# [id number]: There is a proliferation of melanocytes distributed in an irregular pattern along the dermal-epidermal junction with single cells predominating, extension down the follicular epithelium, and focal areas of confluence. In the dermis there are irregular nests of cytologically similar melanocytes. The melanocytes are highlighted by the provided MART-1/Melan-A immunohistochemical stain. This lesion is present at the margin of the specimen. 8 2:32 PM [employer] INTERN DERMATOPATHOLOGY LABORATORY Disclaimer An external and internal positive and negative controls are appropriate for the histochemical, immunohistochemical and immunofluorescence stain(s) in this case (if any), except where stated explicitly. The performance characteristics of the stain(s) cited in this report were developed and its performance characteristic determined by the Dermatopathology Laboratory at [facility]. These tests need not be, and therefore are not, approved by the [place] Food and Drug Administration. The tests are used for clinical purposes. Billing Codes Specimen Charges Stain Charges 24390 1 8 2:32 PM [employer] [employer] INTER[facility] DERMATOPATHOLOGY LABORATORY Synoptic Report MELANOMA OF THE SKIN: Biopsy (Melanoma Bx - A) SPECIMEN Procedure: Biopsy, shave Specimen Laterality: Right TUMOR Tumor Site: Skin of other and unspecified parts of face : Histologic Type: Lentigo maligna melanoma Maximum Tumor (Breslow) Thickness in Millimeters (mm): At least: 0.5 Millimeters (mm) : Tumor is present at the surgical margin; therefore, final depth may exceed current one. Tumor Extent: Macroscopic Satellite Nodule(s): Not identified Ulceration: Not identified Anatomic (Stiven) Level: III (melanoma fills and expands papillary dermis) Accessory Findings: Mitotic Rate: None identified Microsatellite(s): Not identified Lymphovascular Invasion: Not identified Neurotropism: Not identified Tumor-Infiltrating Lymphocytes: Present, nonbrisk Tumor Regression: Present MARGINS: Peripheral Margins: Uninvolved by invasive melanoma Status of Melanoma In Situ Involvement at Peripheral Margins: Involved by melanoma in situ Deep Margin: Involved by invasive melanoma PATHOLOGIC STAGE CLASSIFICATION (pTNM, AJCC 8th Edition): Primary Tumor (pT): pT1a 8 2:32 PM [facility] DERMATOPATHOLOGY LABORATORY Embedded Images 8 2:32 PM [facility] INTER[facility] DERMATOPATHOLOGY LABORATORY Pathology/Cytolog y SLIDE / Unknown 02/12/2018 02/12/2018 1:14 PM CREATIVE SERVICES INTERN us Roxana Palacio MD LAB - PATHOLOGY/CYTOLOGY ORDER KRISTINA Final Result DERMATOPATHOLOGY LABORATORY [facility] - Department of Dermatology [address] [place] [address], 5th [place] [address], [facility] [phone] documented in this encounter Visit Diagnoses Not on filedocumented in this encounter Care Teams Pipe Fitter Ammonia Relationship Specialty Start Date End Date Larry Bustamante MD [address] [place] [address] PCP - General 01/22/18 02/12/18 Min Mcdaniel MD [address] [place] [address] PCP - General 02/13/18 documented as of this encounter
--- OUTSIDE RECORDS SUMMARY | 2024-08-10 12:58 | XMS_ITS | Encounter Summary ---
Author Organization [facility] Address [address] [place] [address] Care Team Providers Care Conveyor Feeder Offbearer Name Role Phone Min Mcdaniel MD Primary Care Provider [phone] Alicia Davis DOMINATRIX Unavailable [phone] Encounter Details Date Type Department Care Team (Latest Contact Info) Description 07/31/2024 Scan HEALTH INFO SRVCS Scanned, Doc Med Group Social History Tobacco Use Types Packs/Day Years Used Date Smoking Tobacco: Former Cigarettes 0 04/03/1962 - 04/03/1977 Passive Smoke Exposure: Past Smokeless Tobacco: Never Comments:Non smoker Alcohol Use Standard Drinks/Week Comments Not Currently 0 (1 standard drink = 0.6 oz pur e alcohol) AUDIT-C Answer Date Recorded Frequency of Alcohol Consumption Never 04/05/2018 Average Number of Drinks Not on file 019 Frequency of Binge Drinking Not on file 06/2018 PHQ-2 Answer Date Recorded Patient Health Questionnaire-2 Score 0 07/15/2024 Sex and Gender Information Value Date Recorded Sex Assigned at Male 04/05/2018 2:26 PM BIOMEDICAL FIELD SERVICE ENGINEER Legal Sex Male 7:26 PM CDT Gender Identity Male 04/05/2018 2:26 PM BIOMEDICAL FIELD SERVICE ENGINEER Sexual Orientation Straight 04/05/2018 2: 26 PM BIOMEDICAL FIELD SERVICE ENGINEER documented as of this encounter Plan of Treatment Upcoming Encounters Date Type Department Care Team (Late st Contact Info) Description 08/12/2024 8:40 AM CDT Laboratory Only [facility] Medical [facility] Family & Internal Medicine [address] [address] Min Mcdaniel MD [address] [place] [address] 01/06/2025 8:40 AM CDT Office Visit [facility] - [facility] [address] [facility], [address] [place] [address] Jesusita Cespedes MD [address] [place] [address] 02/10/2025 10:00 AM BIOMEDICAL FIELD SERVICE ENGINEER Office Visit [facility] - [address] [address] Min Mcdaniel MD [facility] [place] [address] documented as of this encounter Goals Goal Patient Goal Type Associated Problems Recent Progress Patient-Stated? Author Establish Plan for Symptom Monitoring CHF Lifestyle On track(2022 2:12 PM BIOMEDICAL FIELD SERVICE ENGINEER) No Jackie Matthew, AIXA Note: CHF: Patient will recognize symptoms of [...] Monitoring Afib Lifestyle On track(2022 2:12 PM BIOMEDICAL FIELD SERVICE ENGINEER) No Jackie Matthew, AIXA Note: Atrial Fibrillation: Patient will recognize symptoms [...] you should cut out caffeine. Don't take rwrg-wdw-aeoojwu medicines that have caffeine in them. Also avoid medicines with pseudoephedrine. Let your doctor know what medicines you take, including prescription and cbpf-eqx-qdvdmit medicines, as well as any supplements. They interfere with some medicines given for AFib. Establish Plan for Symptom Monitoring COPD Lifestyle On track(2022 2:12 PM BIOMEDICAL FIELD SERVICE ENGINEER) Jackie Obregon RN Note: COPD: Patient will [...] on filedocumented in this encounter Care Teams Conveyor Feeder Offbearer Relationship Specialty Start Date End Date Min Mcdaniel MD [address] [place] [phone] PCP - General INTERNAL MEDICINE 01/31/18 Alicia Davis, DOMINATRIX [address] [place] [address] Elevator Operator PROCESS EXCELLENCE MANAGER 07/07/22 documented as of this encounter
--- OUTSIDE RECORDS SUMMARY | 2024-08-10 12:58 | XMS_ITS | Encounter Summary ---
Author Organization [facility] Address [address] [place] [address] Care Team Providers Care Packer Fuser Name Role Phone Min Mcdaniel MD Primary Care Provider [phone] Encounter Details Date Type Department Care Team (Late st Contact Info) Description 05/14/2024 Lab Requisition [facility] - DermPath Lab [address] [facility], [place] [address] Ceci Neal MD [address] [facility] 3 [place] [address] Social History Tobacco Use Types Packs/Day Years Used Date Smoking Tobacco: Former Smokeless Tobacco: Never Alcohol Use Standard Drinks/Week Comments Yes 0 (1 standard drink = 0.6 oz pur e alcohol) Sex and Gender Information Value Date Recorded Sex Assigned at Not on file Legal Sex Male 1:58 PM CDT Gender Identity Not on file Sexual Orientation Not on file documented as of this encounter Plan of Treatment Not on file documented as of this encounter Procedures Procedure Name Priority Date/Time Associated Diagnosis Comments DERMATOPATHOLOGY Routine 05/14/2024 9:21 AM INBOUND CALL CENTER REPRESENTATIVE documented in this encounter Results * DERMATOPATHOLOGY (05/14/2024 9:21 AM INBOUND CALL CENTER REPRESENTATIVE) Case Report Dermatopathology Report Case: [id number] Authorizing Provider: Ceci Neal MD Collected: 05/14/2024 09:21 AM Ordering Location: [facility] - Received: 05/15/2024 02:21 PM DermPath Lab Pathologist: Tanika Carter MD Specimen: Skin, right yazidi 12:39 PM [facility] DERMATOPATHOLOGY LABORATORY Final Diagnosis Specimen A. SKIN, right yazidi: BASAL CELL CARCINOMA, NODULAR TYPE (C44.319) 12:39 PM [facility] DERMATOPATHOLOGY LABORATORY Clinical History R/O BCC 12:39 PM [facility] DERMATOPATHOLOGY LABORATORY Gross Description Specimen A: Received is one formalin filled container labeled with the patient's name and designated right yazidi. The specimen consists of a shave biopsy measuring 7x6x2 mm. Jar 0. 12:39 PM [facility] DERMATOPATHOLOGY LABORATORY Microscopic Description Specimen A. SKIN, right yazidi: Within the dermis there are aggregates of basaloid cells with a high nuclear to cytoplasmic ratio and peripheral palisading. 12:39 PM [facility] DERMATOPATHOLOGY LABORATORY Disclaimer An external and internal positive and negative controls are appropriate for the histochemical, immunohistochemical and immunofluorescence stain(s) in this case (if any), except where stated explicitly. The performance characteristics of the stain(s) cited in this report were developed and its performance characteristic determined by the Dermatopathology Laboratory at [facility], directed by Dr. Christen Reynoso. These tests need not be, and therefore are not, approved by the [place] Food and Drug Administration. The tests are used for clinical purposes. Billing Codes Specimen Charges Stain Charges 35612 1 12:39 PM INBOUND CALL CENTER REPRESENTATIVE DERMATOPATHOLOGY LABORATORY Embedded Images 12:39 PM [facility] DERMATOPATHOLOGY LABORATORY Pathology/Cytolo gy TISSUE SPECIMEN FROM SKIN / Unknown 05/14/2024 9:21 AM INBOUND CALL CENTER REPRESENTATIVE 05/15/2024 2:21 PM INBOUND CALL CENTER REPRESENTATIVE us Ceci Neal MD LAB - PATHOLOGY/CYTOLOGY OR DERABLES Final Result DERMATOPATHOLOGY LABORATORY [facility] - Department of Dermatology [address] [place] [address], [facility] [phone] documented in this encounter Visit Diagnoses Not on filedocumented in this encounter Care Teams Packer Fuser Relationship Specialty Start Date End Date Min Mcdaniel MD PCP - General 02/13/18 documented as of this encounter
--- OUTSIDE RECORDS SUMMARY | 2024-08-10 12:58 | XMS_ITS | Encounter Summary ---
Author Organization [facility] Address [address] [place] [address] Care Team Providers Care Senior Consultant Name Role Phone Min Mcdaniel MD Primary Care Provider [phone] Encounter Details Date Type Department Care Team (Late st Contact Info) Description 02/21/2019 Lab Requisition [facility] DermPath Lab [address] [facility] [place] [id number] Kate Melton MD [address] [facility] 3 [place] [address] Social History Tobacco Use Types Packs/Day Years [...] Priority Date/Time Associated Diagnosis Comments DERMATOPATHOLOGY Routine 02/20/2019 12:0 0 AM MOTION PICTURE EQUIPMENT MACHINIST documented in this encounter Results * DERMATOPATHOLOGY (02/20/2019 12:00 AM MOTION PICTURE EQUIPMENT MACHINIST) Case Report Dermatopathology Report Case: [id number] Authorizing Provider: Kate Melton MD Collected: 02/20/2019 12:00 AM Ordering Location: [facility] DermPath Lab Received: 02/21/2019 09:27 AM Pathologist: Aissatou York MD Specimen: Skin, left upper back 9 9:18 AM MOTION PICTURE EQUIPMENT MACHINIST DERMATOPATHOLOGY LABORATORY Amended Report Site changed from left back to left upper back. 9:18 AM [facility] DERMATOPATHOLOGY LABORATORY Final Diagnosis Specimen A. SKIN, left upper back: DERMAL SCAR RESIDUAL MELANOCYTIC PROLIFERATION NOT IDENTIFIED (L90.5) 9:18 AM [facility] DERMATOPATHOLOGY LABORATORY Amendment electronically signed by Aissatou York MD on 02/26/2019 at 9:18 AM Clinical History Bx proven compound melanocytic proliferation. Previous Bx: [id number]. 9:18 AM [facility] DERMATOPATHOLOGY LABORATORY Gross Description Specimen A: Received is one formalin filled container labeled with the patient's name and designated left back.The specimen consists of an ellipse measuring [id number] and is oriented with the notch at the 3 o'clock position, not labeled on the requisition. The epidermal surface consists of a centrally located 9x6mm previous biopsy site. The 12 to 6 o'clock margin is inked green. The 6 o'clock to 12 o'clock margin is inked black. The 12 o'clock tip is submitted in cassette 1. The 6 o'clock tip is submitted in cassette 2. The remainder of the ellipse is serially sectioned and submitted in cassettes 3-6. Jar 0. 9:18 AM [facility] DERMATOPATHOLOGY LABORATORY Microscopic Description Specimen A. SKIN, left upper back: There are fibroblasts and collagen bundles oriented parallel to the skin surface. There are elongated blood vessels, some of which are oriented perpendicular to the skin surface. No residual melanocytic proliferation is identified. 9:18 AM [facility] DERMATOPATHOLOGY LABORATORY Disclaimer An external and internal positive and negative controls are appropriate for the histochemical, immunohistochemical and immunofluorescence stain(s) in this case (if any), except where stated explicitly. The performance characteristics of the stain(s) cited in this report were developed and its performance characteristic determined by the Dermatopathology Laboratory at [facility], directed by Dr. Christen Reynoso. These tests need not be, and therefore are not, approved by the [place] Food and Drug Administration. The tests are used for clinical purposes. Billing Codes Specimen Charges Stain Charges 48506 1 11/26/201 9 9:18 AM MOTION PICTURE EQUIPMENT MACHINIST DERMATOPATHOLOGY LABORATORY Embedded Images 9 9:18 AM MOTION PICTURE EQUIPMENT MACHINIST DERMATOPATHOLOGY LABORATORY Pathology/Cytolog y TISSUE SPECIMEN FROM SKIN / Unknown 02/20/2019 02/21/2019 9:27 AM MOTION PICTURE EQUIPMENT MACHINIST us Kate Melton MD LAB - PATHOLOGY/CYTOLOGY ORD ERABLES Edited Result - Final DERMATOPATHOLOGY LABORATORY [facility] - Department of Dermatology [address] [place] [address], 5th Floor Lab [address] [phone] documented in this encounter Visit Diagnoses Not on filedocumented in this encounter Care Teams Senior Consultant Relationship Specialty Start Date End Date Min Mcdaniel MD PCP - General 02/13/18 documented as of this encounter
--- OUTSIDE RECORDS SUMMARY | 2024-08-10 12:58 | XMS_ITS | Encounter Summary ---
Author Organization [facility] Address [address] [place] [address] Care Team Providers Care Upholstery Cutter Name Role Phone Min Mcdaniel MD Primary Care Provider [phone] Encounter Details Date Type Department Care Team (Late st Contact Info) Description 02/05/2019 Lab Requisition [facility] DermPath Lab [address] [facility], [place] [phone] Kate Melton MD [address] [place] [address] Social History Tobacco Use Types Packs/Day Years [...] Priority Date/Time Associated Diagnosis Comments DERMATOPATHOLOGY Routine 02/04/2019 12:0 0 AM ROUTE SALES DELIVERY DRIVER documented in this encounter Results * DERMATOPATHOLOGY (02/04/2019 12:00 AM ROUTE SALES DELIVERY DRIVER) Case Report Dermatopathology Report Case: [id number] Authorizing Provider: Kate Melton MD Collected: 02/04/2019 12:00 AM Ordering Location: [facility] DermPath Lab Received: 02/05/2019 06:34 AM Pathologist: Aissatou York MD Specimen: Skin, left upper back 9 10:32 AM ROUTE SALES DELIVERY DRIVER DERMATOPATHOLOGY LABORATORY Final Diagnosis Specimen A. SKIN, left upper back: COMPOUND MELANOCYTIC PROLIFERATION; NOT PRESENT AT SAMPLED MARGIN (D48.5) (see microscopic description and comment) 10:32 AM [facility] DERMATOPATHOLOGY LABORATORY Clinical History Nevus, MM. Brown papule, hx of MM. 10:32 AM [facility] DERMATOPATHOLOGY LABORATORY Gross Description Specimen A: Received is one formalin filled container labeled with the patient's name and designated left upper back. The specimen consists of a shave measuring [id number]. The margin is inked green. Jar 0. 10:32 AM [facility] DERMATOPATHOLOGY LABORATORY Microscopic Description Specimen A. SKIN, left upper back: Sections show a compound melanocytic proliferation. There is a lentiginous proliferation of melanocytes between irregular nests. Scattered melanocytes show evidence of upward migration within the epidermis. The melanocytes are large and have a eliud cytoplasm. The dermis shows scattered small nests of cytologically similar melanocytes. There is focal dermal fibrosis, sparse lymphocytic inflammation, and scattered melanophages. The melanocytes are highlighted by an immunostain for MART-1/Melan-A. This lesion is not present at the sampled margin of the specimen. COMMENT: The features of focal pagetoid spread and involvement of suprapapillary plates by lesional melanocytes are worrisome. As this lesion appears completely excised in the sampled sections, clinicopathologic correlation is recommended as to complete removal. 10:32 AM [facility] DERMATOPATHOLOGY LABORATORY Disclaimer An external and internal positive and negative controls are appropriate for the histochemical, immunohistochemical and immunofluorescence stain(s) in this case (if any), except where stated explicitly. The performance characteristics of the stain(s) cited in this report were developed and its performance characteristic determined by the Dermatopathology Laboratory at [facility], directed by Dr. Christen Reynoso. These tests need not be, and therefore are not, approved by the [place] Food and Drug Administration. The tests are used for clinical purposes. Billing Codes Specimen Charges Stain Charges 29364 1 90927 1 10:32 AM [facility] DERMATOPATHOLOGY LABORATORY Embedded Images 10:32 AM [facility] DERMATOPATHOLOGY LABORATORY Pathology/Cytolog y TISSUE SPECIMEN FROM SKIN / Unknown 02/04/2019 02/05/2019 6:34 AM ROUTE SALES DELIVERY DRIVER us Kate Melton MD LAB - PATHOLOGY/CYTOLOGY ORD ERABLES Final Result DERMATOPATHOLOGY LABORATORY [facility] - Department of Dermatology [address] [place] [address], 5th Floor Lab [address] [phone] documented in this encounter Visit Diagnoses Not on filedocumented in this encounter Care Teams Upholstery Cutter Relationship Specialty Start Date End Date Min Mcdaniel MD PCP - General 02/13/18 documented as of this encounter
--- OUTSIDE RECORDS SUMMARY | 2024-08-10 12:58 | XMS_ITS | Clinical Summary ---
Author Organization [facility] Address [address] [place] [address] Care Team Providers Care Explosive Ordnance Manager Name Role Phone iMn Mcdaniel MD Primary Care Provider [phone] Source Comments [facility],non-owned Affiliates and Associated Physician Practices is amultiple site organization consisting of ambulatory clinics and hospital sitesin [place], [place], [place] and [place]. This disclosure is being madepursuant to the Care Everywhere program and may not contain all information available regarding this patient. Last updated 17.[employer] [facility] Allergies Active Allergy Reactions Criticality Noted Date Comments Sulfa Drugs Other 02/13/2018 Not sure Medications * Be aware that medications may not be up to date on this document. Alwaysverify current medications with the patient. enalapril (VASOTEC) 20 MG tablet 20 mg 12/26/2017 Active finasteride (PROSCAR) 5 MG tablet 5 mg 02/06/2018 Active pravastatin (PRAVACHOL) 40 MG tablet 40 mg 02/01/2018 Active verapamil CR (ISOPTIN-SR) 240 MG tablet 240 mg 11/11/2017 Active Active Problems No known active problems Encounters Date Type Department Care Team Description 05/14/2024 Lab Requisition [facility] - DermPath Lab [address] [place] [phone] Ceci Neal MD from Last 3 Months Immunizations Immunization Administration Dates Next Due INFLUENZA VACCINE 2018 Family History Medical History Relation Name Comments Asthma Neg Hx CVA Neg Hx Cancer - Breast Neg Hx Cancer - Other Neg Hx Cancer - Skin, Melanoma Neg Hx Cancer - Skin, Non Melanoma Neg Hx Eczema Neg Hx Hemophilia Neg Hx Psoriasis Neg Hx Social History Tobacco Use Types Packs/Day Years Used Date Smoking Tobacco: Former Smokeless Tobacco: Never Alcohol Use Standard Drinks/Week Comments Yes 0 (1 standard drink = 0.6 oz pur e alcohol) Sex and Gender Information Value Date Recorded Sex Assigned at Not on file Legal Sex Male 1:58 PM CDT Gender Identity Not on file Sexual Orientation Not on file Last Filed Vital Signs Vital Sign Reading Time Taken Comments Blood Pressure 135/73 03/06/2018 10:05 AM EDGER MACHINE OPERATOR Pulse 66 03/06/2018 10:05 AM EDGER MACHINE OPERATOR Temperature - - Respiratory Rate - - Oxygen Saturation 97% 03/06/2018 10:05 AM EDGER MACHINE OPERATOR Inhaled Oxygen Concentration - - Weight 104.3 kg (230 lb) 03/06/2018 7:53 AM EDGER MACHINE OPERATOR Height 188 cm (6' 2 ) 03/06/2018 7:53 AM EDGER MACHINE OPERATOR Body Mass Index 29.53 03/06/2018 7:53 AM EDGER MACHINE OPERATOR Plan of Treatment Health Maintenance Due Date Last Done Comments MEDICARE AWV 12 MONTHS 1939 DTAP/TDAP/TD VACCINES (1 - Tdap) 1958 PNEUMOCOCCAL VACCINE 50+ (1 of 1 - PCV) 1989 ZOSTER VACCINE (1 of 2) 1989 Respiratory Syncytial Virus (RSV) Vaccine Pt: or over 60 yrs (1 - 1-dose 75+ series) 2014 COVID-19 VACCINE ( - 2023-2 5 season) 2023 DEPRESSION SCREENING 04/03/2024 INFLUENZA VACCINE (Season Ended) 2024 02/15/20 18 HEPATITIS B VACCINE Aged Out No longe r eligible based on patient's age to complete this topic HIB VACCINE Aged Out No longer eligi ble based on patient's age to complete this topic HPV VACCINE Aged Out No longer eligi ble based on patient's age to complete this topic MENINGOCOCCAL (Group B) VACC INE SHARED DECISION-MAKING Aged Out No longer eligibl e based on patient's age to complete this topic MENINGOCOCCAL GROUPS A/C/Y/W VACCINE Aged Out No longer eligible b ased on patient's age to complete this topic Procedures Procedure Name Priority Date/Time Associated Diagnosis Comments DERMATOPATHOLOGY Routine 05/14/2024 9:21 AM EDGER MACHINE OPERATOR from Last 3 Months Results * DERMATOPATHOLOGY (05/14/2024 9:21 AM EDGER MACHINE OPERATOR) Case Report Dermatopathology Report Case: [id number] Authorizing Provider: Ceci Neal MD Collected: 05/14/2024 09:21 AM Ordering Location: [facility] - Received: 05/15/2024 02:21 PM DermPath Lab Pathologist: Tanika Carter MD Specimen: Skin, right mormonism 12:39 PM EDGER MACHINE OPERATOR DERMATOPATHOLOGY LABORATORY Final Diagnosis Specimen A. SKIN, right mormonism: BASAL CELL CARCINOMA, NODULAR TYPE (C44.319) 12:39 PM EDGER MACHINE OPERATOR DERMATOPATHOLOGY LABORATORY Clinical History R/O BCC 12:39 PM EDGER MACHINE OPERATOR DERMATOPATHOLOGY LABORATORY Gross Description Specimen A: Received is one formalin filled container labeled with the patient's name and designated right mormonism. The specimen consists of a shave biopsy measuring 7x6x2 mm. Jar 0. 12:39 PM EDGER MACHINE OPERATOR DERMATOPATHOLOGY LABORATORY Microscopic Description Specimen A. SKIN, right mormonism: Within the dermis there are aggregates of basaloid cells with a high nuclear to cytoplasmic ratio and peripheral palisading. 12:39 PM EDGER MACHINE OPERATOR DERMATOPATHOLOGY LABORATORY Disclaimer An external and internal positive and negative controls are appropriate for the histochemical, immunohistochemical and immunofluorescence stain(s) in this case (if any), except where stated explicitly. The performance characteristics of the stain(s) cited in this report were developed and its performance characteristic determined by the Dermatopathology Laboratory at [facility], directed by Dr. Christen Reynoso. These tests need not be, and therefore are not, approved by the [place] Food and Drug Administration. The tests are used for clinical purposes. Billing Codes Specimen Charges Stain Charges 48202 1 12:39 PM [facility] DERMATOPATHOLOGY LABORATORY Embedded Images 12:39 PM EDGER MACHINE OPERATOR DERMATOPATHOLOGY LABORATORY Pathology/Cytolo gy TISSUE SPECIMEN FROM SKIN / Unknown 05/14/2024 9:21 AM EDGER MACHINE OPERATOR 05/15/2024 2:21 PM EDGER MACHINE OPERATOR us Ceci Neal MD LAB - PATHOLOGY/CYTOLOGY OR DERABLES Final Result DERMATOPATHOLOGY LABORATORY [facility] - Department of Dermatology [facility] Medicine [address]rd [place] [address], [facility] [phone] from Last 3 Months Insurance MEDICARE MEDICARE COMMERCIAL [facility] Care Teams Explosive Ordnance Manager Relationship Specialty Start Date End Date Min Mcdaniel MD PCP - General 02/13/18
--- OUTSIDE RECORDS SUMMARY | 2024-08-10 12:58 | XMS_ITS | Clinical Summary ---
Author Organization [facility] Address [address] [place] [address] Care Team Providers Care Director Of Sales And Marketing Name Role Phone Min Mcdaniel MD Primary Care Provider Porfirio Ronquillo MD Unavailable Sanjeev León MD Unavailable Porfirio Ronquillo MD Unavailable [phone] Carlos Moya MD Unavailable Gabriel Tanner OD Unavailable Allergies Active Allergy Reactions Criticality Noted Date Comments Iodine Rash,Unknown Medium 02/02/2017 IV Contrast Other Other (See comments) Low 08/22/2023 Sulfa (Sulfonamide Antibiotics) Rash Medium 07/02/2018 Medications tmchm-3-yff-epa- dpa-fish oil 1,050-1,200 mg capsuleIndicatio ns:supplement Take 1 capsule by mouth 3 (three) times a day Active cholecalciferol (VITAMIN D-3) 2,000 unit capsuleIndicatio ns:Vitamin D Deficiency Take 1 capsule (2,000 Units total) by mouth 2 (two) times a day Active coenzyme Q10 100 mg capsuleIndicatio ns:supplement Take 1 capsule (100 mg total) by mouth 2 (two) times a day Active finasteride (PROSCAR) 5 mg tabletIndication s:benign prostatic hyperplasia with lower urinary tract sx Take 1 tablet (5 mg total) by mouth every morning Active aspirin 81 mg enteric coated tabletIndication s:Myocardial Reinfarction Prevention,preve ntion of thrombosis Take 1 tablet (81 mg total) by mouth every morning Active resveratrol 250 mg capsuleIndicatio ns:supplement Take 250 mg by mouth 2 (two) times a day Active fluticasone furoate-vilanter oL (BREO ELLIPTA) 200-25 mcg/dose diskus inhalerIndicatio ns:Bronchospasm Prevention with COPD Inhale 1 puff once daily 2 Active omeprazole (PriLOSEC) 40 mg capsuleIndicatio ns:Treatment of Non-Bleeding Gastric Disorder Take 1 capsule (40 mg total) by mouth daily 2 Active apixaban (ELIQUIS) 5 mg tablet Take 1 tablet (5 mg total) by mouth 2 (two) times a day Active UNABLE TO FIND Med Name: Hyaluronic ACid 250mg Qd Active carbidopa-levodo pa (SINEMET) 25-100 mg per tablet Take 1 tablet by mouth 3 (three) times a day 4 025 Active metoprolol XL (TOPROL-XL) 25 mg extended release tablet Take one daily 90 tablet 1 4 Active rosuvastatin (CRESTOR) 20 mg tablet Take 1 tablet (20 mg total) by mouth daily 90 tablet 3 5 Active furosemide (LASIX) 40 mg tablet 5 Active doxycycline 100 mg tablet TAKE 1 TABLET BY MOUTH TWICE DAILY FOR 14 DAYS 5 Active furosemide (LASIX) 20 mg tablet Take 1 tablet (20 mg total) by mouth daily 30 tablet 1 4 025 Discontin ued(Dupli cristina order) Active Problems Problem Noted Date Diagnosed Date [...] kidney disease 04/03/2023 Nonrheumatic aortic (valve) insufficiency 2023 Polyosteoarthritis, unspecified 04/03/2023 Pure hypercholesterolemia, unspecified Permanent atrial fibrillation 04/03/2023 Atrioventricular block, complete 04/03/2023 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 Assessment & Plan (04/20/2020 1:55 PM APPROVER): Well controlled on current statin therapy diet, [...] 10/21/2019 Assessment & Plan (04/20/2020 1:54 PM APPROVER): No exertional symptoms but some orthopnea, check BMP. Continue current diuretic regimen pending follow-up BMP. Assessment & Plan (10/21/2019 1:45 PM CDT): Symptomatic in improvement with furosemide, over, appears to be a bit on the dry side. Will switch him to every other day. Coronary artery disease of n ative artery of [place] heart with stable angina pectoris 10/31/2018 Assessment & Plan (10/19/2020 1:11 PM CDT): No angina on current therapy the setting of angiographically moderate multivessel disease. Continue statin Assessment & Plan (04/20/2020 1:55 PM APPROVER): No angina on current medical therapy setting [...] week. However, when reviewing these results in [facility] it is noted that the lab was canceled due to the specimen spilling in transit. Will obtain BMP today to evaluate electrolytes and renal function. Nonspecific abnormal function study, cardiovascu lar 10/11/2018 Overview (10/11/2018): Added automatically from request for surgery [id number] Pacemaker 08/28/2018 Overview (08/28/2018): Medtronic DDD Yadira MRI pacemaker implanted on 08/27/18 for [facility] Complete heart block 08/26/2018 Assessment & Plan (10/19/2020 1:11 PM CDT): Doing well permanent pacing Assessment & Plan (04/20/2020 1:54 PM APPROVER): Doing well permanent pacing Assessment & Plan [...] with readings. Continue enalapril and metoprolol. Dizziness Resolved Problems Problem Noted Date Diagnosed Date [...] with repeat Duplex scan in one year. Encounters Date Type Department Care Team Description 08/01/2024 Telephone [facility] Cardiology [address] [place] [address] Sanjeev León MD 07/12/2024 2:58 PM CDT - 07/12/2024 11:59 PM CDT Hospital Encounter [facility] Radiology at [facility] [address] [place] [address] Acute pain of right knee Discharge Disposition: Discharge to home or self care 07/12/2024 2:27 PM CDT - 07/12/2024 11:59 PM CDT Hospital Encounter [facility] Radiology at [facility] [address] [place] [address] Acute pain of right knee Discharge Disposition: Discharge to home or self care 07/12/2024 2:15 PM CDT Office Visit [facility]) - [facility] [address] [place] [address] [place] [phone] Nabil Wagner MD Acute pain of right knee (Primary Dx) 07/12/2024 Results Follow-Up [facility] Orthopaedic Surgery [address] [place] [address] 1st Floor [address] [place] [phone] Nabil Wagner MD 07/12/2024 Telephone [facility] [address] [place] [address] [address] [place] [address] Results 07/12/2024 [facility] [address] [place] [address] [place] [phone] Nabil Wagner MD Call Back 07/12/2024 Telephone [facility] [address] [place] [address] [address] [place] [address] Nabil Wagner MD Appointment 05/14/2024 8:45 AM APPROVER Ancillary Procedure [facility] Cardiology [address] [place] [id number] Pacemaker (Primary Dx); Complete heart block (HCC) from Last 3 Months Immunizations Immunization Administration Dates Next Due Influenza, Trivalent, High D ose, Split, Preservative Free, Intramuscular 01/03/2017 Surgical History Surgery Date Site/Laterality Comments HERNIA REPAIR CYSTOSCOPY INSERTION / REMOV AL STENT / STONE 01/01/2017 - 01/31/2017 Bilateral w/ lithotripsy LITHOTRIPSY unknown COLONOSCOPY 12/29/2020 CHOLECYSTECTOMY 07/03/2018 INSERT / REPLACE / REMOVE PACEMAKER 08/27/2018 Left Medtronic Dual Chamber PPM ENTROPION REPAIR Bilateral years ago CARDIAC CATHETERIZATION 10/16/2018 ESOPHAGOGASTRODUODENOSCOPY 04/06/2022 [facility] SURGERY 04/03/2017 - 04/02/2018 [facility] - nose EXTRACORPOREAL SHOCK WAVE LITHOTRIPSY 01/01/2017 - 01/31/2017 Right CYSTOSCOPY W/ URETEROSCOPY W / LITHOTRIPSY 04/03/2016 - 04/02/2017 ENTROPION REPAIR 08/23/2022 Right REPAIR ENTROPION (Right: Eye) lower eye and lesion removal RUL Medical History Medical History Date Comments Kidney stones Hypertension High cholesterol Diverticulitis Rheumatic fever Aneurysm artery, iliac per famil y member; R internal iliac Cataract Sleep apnea Family History Medical History Relation Name Comments Heart disease Father Stroke Mother Relation Name Status Comments Father Mother Social History Tobacco Use Types Packs/Day Years Used Date Smoking Tobacco: Former Cigarettes 0.5 29.5 1 960 - 10/16/1988 Passive Smoke Exposure: Never Smokeless Tobacco: Never Tobacco Cessation:Counseling Given: Not Answered Alcohol Use Standard Drinks/Week Comments Yes 0 (1 standard drink = 0.6 oz pur e alcohol) occasionally [employer] Util[employer] Answer Date Recorded In the past 12 months has [employer] electric, gas, oil, or water [email or web address] threatened to shut off services in your [...] place to sleep or slept in a skilled nursing (including now)? No 08/10/2023 Personal Safety Answer Date Recorded Have you ever been in or are you currently in a harmful physical or emotional relationship or is someone making you feel afraid or unsafe? Denies 08/09/2023 Sex and Gender Information Value Date Recorded Sex Assigned at Not on file Legal Sex Male 9:30 PM APPROVER Gender Identity Not on file Sexual Orientation Not on file Obstetrics History Last Filed Vital Signs Vital Sign Reading Time Taken Comments Blood Pressure 144/75 09/27/2023 2:55 PM CDT Pulse 85 09/27/2023 2:55 PM CDT Temperature 36.9 C (98.5 F) 08/11/2023 4:11 AM CDT Respiratory Rate 16 08/11/2023 11:50 AM CDT Oxygen Saturation 99% 09/27/2023 2:55 PM CDT Inhaled Oxygen Concentration - - Weight 90.7 kg (200 lb) 07/12/2024 2:21 PM CDT Height 182.9 cm (6') 07/12/2024 2:21 PM CDT Body Mass Index 27.12 07/12/2024 2:21 PM CDT Plan of Treatment Health Maintenance Due Date Last Done Comments Depression Screening 1940 Hepatitis B Screening 1958 Well Visit 65+ 02/15/2004 Covid-19 Vaccine (2023-2 5 season) 2023 01/17/2022, 07/14/2021, 07/14/2021, Additional history exists Fall Risk Assessment 08/10/2024 08/11/2023 DTaP/Tdap/Td Vaccine (2 - Td or Tdap) 12/17/2027 12/16/2017 Pneumococcal vaccine 65+ Completed 01/29/2019, 03/05 Zoster Vaccine Completed 09/21/2023, 04/0 12/2023, 02/04/2012 Influenza Vaccine Completed 01/16/2024, , 01/17/2022, Additional history exists Medical Devices Implanted Type Area Industrial Spraypainter Device Identifier Shelf Expiration Date Model / Serial / Lot Medtronic Cardiac Rhythm Mgmt [id number] [place] S Mri Surescan 50.8x46.6mm 2 Chamber 7.4mm Pacemaker 22.5gm - [id number] - [id number] Implanted:Qty: 1 on 08/27/2018 by Sanjeev León MD at [facility] Pacemaker Medtronic Cardiac Rhythm Mgmt [id number] 10/29/2019 [id number] / [id number] / Medtronic Cardiac Rhythm Mgmt 5076-58 Capsurefix Novus 6.2fr 2mm 58cm Bipolar Screw In Implantable - [id number] - [id number] Implanted:Qty: 1 on 08/27/2018 by Sanjeev León MD at [facility] Medtronic Cardiac Rhythm Mgmt [id number] 03/19/2020 5076-58 / [id number] / Medtronic Cardiac Rhythm Mgmt 5076-52 Capsurefix Novus 6.2fr 2mm 52cm Bipolar Screw In Implantable Latex Free - [id number] - [id number] Implanted:Qty: 1 on 08/27/2018 by Sanjeev León MD at [facility] Medtronic Cardiac Rhythm Mgmt [id number] 04/30/2020 5076-52 / [id number] / Description:Right atrial idris d Procedures Procedure Name Priority Date/Time Associated Diagnosis Comments CT KNEE RIGHT WO CONTRAST Schedule Routine, Read Routine (OP Routine) 07/12/2024 3:23 PM CDT Acute pain of right knee XR KNEE RIGHT 3 VIEWS Schedule Routine, Read Routine (OP Routine) 07/12/2024 2:34 PM CDT Acute pain of right knee DEVICE CHECK - REMOTE Routine 05/14/2024 9:12 AM APPROVER Complete heart block (HCC) from Last 3 Months Results * CT Knee Right WO Contrast (07/12/2024 3:23 PM CDT) Anatomical Region Laterality Modality Lower Extremities Right Computed Tomog oscar 07/12/2024 4:17 PM CDT Impressions 07/12/2024 4:47 PM CDT 1. Radiographically occult, nondisplaced right knee lateral tibial plateau fracture. 2. Severe medial compartment and prominent tricompartmental right knee osteoarthritis. Dictated by: Carlos Seo MD The radiology attending physician has personally reviewed this study, and had reviewed and/or edited this written report and agrees with it. Electronically signed by: Pj Estrada M.D. Narrative 07/12/2024 4:47 PM CDT EXAMINATION: CT KNEE RIGHT WO CONTRAST HISTORY: Acute right knee pain TECHNIQUE: Computed tomographic images of the right knee were obtained without contrast. COMPARISON: Right knee radiographs 07/12/2024, 08/08/2023 FINDINGS: There is severe medial compartment predominant tricompartmental osteoarthritis of the right knee, with chondrocalcinosis. A small knee effusion is present. There is mild lateral subluxation of the patella. There is a linear lucency within the lateral tibial plateau extending into the cortex (series 4, image 57). No associated depression. There are atherosclerotic calcifications of the popliteal artery and its branches. The extensor mechanism tendons are grossly intact. Procedure Note Pj Estrada MD PhD - 07/12/2024 EXAMINATION: CT KNEE RIGHT WO CONTRAST HISTORY: Acute right knee pain TECHNIQUE: Computed tomographic images of the right knee were obtained without contrast. COMPARISON: Right knee radiographs 07/12/2024, 08/08/2023 FINDINGS: There is severe medial compartment predominant tricompartmental osteoarthritis of the right knee, with chondrocalcinosis. A small knee effusion is present. There is mild lateral subluxation of the patella. There is a linear lucency within the lateral tibial plateau extending into the cortex (series 4, image 57). No associated depression. There are atherosclerotic calcifications of the popliteal artery and its branches. The extensor mechanism tendons are grossly intact. IMPRESSION: 1. Radiographically occult, nondisplaced right knee lateral tibial plateau fracture. 2. Severe medial compartment and prominent tricompartmental right knee osteoarthritis. Dictated by: Carlos Seo MD The radiology attending physician has personally reviewed this study, and had reviewed and/or edited this written report and agrees with it. Electronically signed by: Pj Estrada M.D. us Nabil Wagner MD IMG CT PROCEDURES Final Res ult * XR Knee Right 3 View (07/12/2024 2:34 PM CDT) Anatomical Region Laterality Modality Lower Extremities, Knee Right Computed Radiography 07/12/2024 2:41 PM CDT Impressions 07/12/2024 2:41 PM CDT 1. Progressive severe medial compartment predominant tricompartmental right knee osteoarthritis. Electronically signed by: Al Freeman D.O. Narrative 07/12/2024 2:41 PM CDT EXAMINATION: XR KNEE RIGHT 3 VIEWS HISTORY: right knee pain FINDINGS: Comparison is made to 08/08/2023 radiograph. There is progressive now severe medial compartment predominant tricompartmental right knee osteoarthritis with small knee joint effusion. Intra-articular loose bodies. No acute fracture or dislocation. Extensive atherosclerosis. Chondrocalcinosis. There is severe lateral compartment predominant tricompartmental arthritis in the left knee. Procedure Note Al Freeman, - 07/12/2024 EXAMINATION: XR KNEE RIGHT 3 VIEWS HISTORY: right knee pain FINDINGS: Comparison is made to 08/08/2023 radiograph. There is progressive now severe medial compartment predominant tricompartmental right knee osteoarthritis with small knee joint effusion. Intra-articular loose bodies. No acute fracture or dislocation. Extensive atherosclerosis. Chondrocalcinosis. There is severe lateral compartment predominant tricompartmental arthritis in the left knee. IMPRESSION: 1. Progressive severe medial compartment predominant tricompartmental right knee osteoarthritis. Electronically signed by: Al Freeman D.O. us Nabil Wagner MD IMG XR PROCEDURES Final Res ult * DEVICE CHECK - REMOTE (05/14/2024 9:12 AM APPROVER) Anatomical Region Laterality Modality Other Narrative 06/03/2024 9:35 AM APPROVER Table formatting from the original result was not included. PM CHECK (REMOTE) Patient ID: Stu Graham is a 84 y.o. male This patient received a Medtronic Pacemaker. They had a routine remote transmission on 05/14/2024. Device implant indications: Complete heart block Interrogation of the patient's device demonstrates the following: Presenting EGM: AFib V paced @ 63 bpm Original Device Settings Right Atrium Right Ventricle Sensitivity (mV) 0.3 mV 0.9 mV Pacing Outputs 1.5 V @ 0.4 ms 2.25 V @ 0.4 ms Testing Measurements Right Atrium Right Ventricle Sensitivity (mV) 0.6 mV 11.8 mV Impedence (Ohms) 399 ohms 361 ohms Pace Threshold Not done V @ ms 1.125 V @ 0.4 ms Pacing % 5.3 % 98.8 % Battery Status: 5.2 years to FÁTIMA Episodes last 90 days/Comments: AF Salix 100 % No new ventricular events. NORMAL DEVICE FUNCTION PROGRAMMED MEDICATIONS: Anti-coagulant(s): Aspirin 81 mg, Eliquis 5 mg twice a day Anti-arrhythmic(s): Toprol-XL 25 mg daily PLAN: 1) Medtronic Pacemaker evaluation 2) Medtronic remote transmission scheduled in 3 months. 3) Programming appropriate for device measurements Lashon Champagne RN Sanjeev León MD [facility] Final Result from Last 3 Months Insurance MEDICARE STANDARD LIFE STANDARD LIFE MEDICARE STANDARD LIFE Advance Directives For more information, please contact: [phone] * Full Code (Latest Code Status on File) Date Activated Date Inactivated Comments 08/09/2023 1:36 AM 08/11/2023 10:08 PM * Full Code Date Activated Date Inactivated Comments 10/16/2018 10:33 AM 10/16/2018 6:56 PM * Full Code Date Activated Date Inactivated Comments 08/26/2018 5:23 PM 08/28/2018 7:25 PM * Full Code Date Activated Date Inactivated Comments 07/03/2018 3:55 AM 07/05/2018 8:57 PM Care Teams Director Of Sales And Marketing Relationship Specialty Start Date End Date Min Mcdaniel MD [address] [place] [address] PCP - General 07/02/18 Porfirio Ronquillo MD [address] [place] [address] Referring Physician Surgery 07/25/18 Sanjeev León MD [address] [place] [address] Consulting Physician Cardiology 08/28/18 Porfirio Ronquillo MD [address] [place] [address] Referring Physician Surgery 01/22/20 Carlos Moya MD [address] [place] [address] Ophthalmology 08/31/22 Gabriel Tanner OD [address] [place] [address] Optometry 11/02/22
--- OUTSIDE RECORDS SUMMARY | 2024-08-10 12:58 | XMS_ITS | Continuity of Care Document ---
Author Organization [facility] Address [address] [place] [address] Phone Care Team Providers Care Hand Therapist Name Role Phone Isac Arauz Unavailable Unavailable Procedures Procedure Date Therapeutic Activities Neuromuscular Re-Ed Therapeutic Exercise Manual Therapy Hot or Cold Pack Doc neg elder mal no plan PT Evaluation High Complexity Therapeutic Activities Manual Therapy Neuromuscular Re-Ed Advance Directives Directive Yes / No Effective Date File Name No Information Encounters Encounter Description Practice Location Reason(s) For Visit Diagnoses Date Provider Providers Copied on Encounter [facility], [address], [id number], tel:[phone] [place] No Information 4 Keira Chau. [address], [facility], [place]. tel: [phone] [facility], [address] [place] [address], [id number], tel:[phone] [place] No Information 4 Keira Chau. [address] [facility], [address], [facility], [place]. tel:[phone] Referring Provider: Min Mcdaniel, [address] [place] [address], [id number]. tel:[phone] [facility], [address], [place], [place], [id number], [place] tel:[phone] [place] No Information 4 Keira Chau. [address] [facility], [address], [place], [address], [place]. tel: [phone] Referring Provider: Min Mcdaniel, [address] [place] [address], [address]. tel:[phone] Family History Family Member Type Diagnosis Age At Onset No Information Payers Payer name Insurance type Covered constitution party ID Authoriza tion(s) Medicare [place] MB [id number] [employer] CI [id number] Social History Type Description Quantity Date Captured Comments Sex Male Smoking Status No Information Chief Complaint And Reason For Visit No Information Reason For Referral Reason For Referral No Information History Of Present Illness Encounter Date Complaint History Of Prese nt Illness No Information Functional Status Date Functional Assessmen t No Information Instructions Date Instruction Additional Infor mation No Information Assessments Type Assessment Date No Information Patient Care Teams Name Effective Dates (start - stop) Status Members No Information
--- OUTSIDE RECORDS SUMMARY | 2024-08-10 12:58 | XMS_ITS | Encounter Summary ---
Author Organization [facility] Address [address] [place] [address] Care Team Providers Care Chef De Cuisine Name Role Phone Min Mcdaniel MD Primary Care Provider [phone] Encounter Details Date Type Department Care Team (Late st Contact Info) Description 03/13/2018 Lab Requisition [facility] Care D[facility] Lab [address] [place] [address] Kate Melton MD [address] [facility] [address] [place] [address] Social History Tobacco Use Types Packs/Day Years [...] Associated Diagnosis Comments DERMATOPATH TECHNICAL REPORT Routine 03/12/2018 12:00 AM CISCO ADMINISTRATOR documented in this encounter Results * DERMATOPATH TECHNICAL REPORT (03/12/2018 12:00 AM CISCO ADMINISTRATOR) Case Report Dermatopathology Report Case: [id number] Authorizing Provider: Kate Melton MD Collected: 03/12/2018 12:00 AM Pathologist: Ashley Reynoso MD Received: 03/13/2018 06:57 AM Specimen: Skin, right parietal scalp 8 12:06 PM CISCO ADMINISTRATOR DERMATOPATHOLOGY LABORATORY Clinical History BCC, telangiectatic papule. Check margins. 8 12:06 PM [facility] DERMATOPATHOLOGY LABORATORY Gross Description Specimen A: Received is one formalin filled container labeled with the patient's name and designated right parietal scalp. The specimen consists of a shave measuring [id number]. The margin is inked green. Jar 0. [facility] Dermatopathology Laboratory performed the technical component only. 8 12:06 PM [facility] DERMATOPATHOLOGY LABORATORY Embedded Images 12:06 PM [facility] DERMATOPATHOLOGY LABORATORY DISCLAIMER An external and internal positive and negative controls are appropriate for the histochemical, immunohistochemical and immunofluorescence stain(s) in this case (if any), except where stated explicitly. The performance characteristics of the stain(s) cited in this report were developed and its performance characteristic determined by the Dermatopathology Laboratory at [facility]. These tests need not be, and therefore are not, approved by the [place] Food and Drug Administration. The tests are used for clinical purposes. 8 12:06 PM [facility] DERMATOPATHOLOGY LABORATORY Pathology/Cytolog y TISSUE SPECIMEN FROM SKIN / Unknown 03/12/2018 03/13/2018 6:57 AM CISCO ADMINISTRATOR Kate Melton MD LAB - PATHOLOGY/CYTOLOGY ORD ERABLES Final Result DERMATOPATHOLOGY LABORATORY [facility] - Department of Dermatology [address] [place] [address], 5th Floor Lab [address] [phone] documented in this encounter Visit Diagnoses Not on filedocumented in this encounter Care Teams Chef De Cuisine Relationship Specialty Start Date End Date Min Mcdaniel MD PCP - General 02/13/18 documented as of this encounter
--- OUTSIDE RECORDS SUMMARY | 2024-08-10 12:58 | XMS_ITS | Clinical Summary ---
Author Organization [facility] Address [facility] [place] [address] Care Team Providers Care Installation And Service Technician Name Role Phone Min Mcdaniel MD Primary Care Provider [phone] Alicia Davis PRINCIPAL AUTOMATION ENGINEER Unavailable [phone] Allergies Active Allergy Reactions Criticality Noted Date Comments Iodine Unknown,Rash Medium 02/02/2017 IV Contrast Sulfa Antibiotics Hives,Rash Low 02/02/2017 Not sure Medications aspirin 81 MG tablet Take 1 tablet (81 mg total) by mouth daily. Active Coenzyme Q10 (CO Q-10) 100 MG Cap Take 1 capsule (100 mg total) by mouth 2 (two) times a day. Active finasteride 5 MG tablet Take 1 tablet (5 mg total) by mouth daily. 12/24/19 17 Active [place]-3 1400 MG Cap Take 2 capsules by mouth daily. Active Resveratrol 250 MG Cap Take 2 capsules by mouth daily. Active Cholecalciferol (VITAMIN D) 2000 units Cap Take 1 capsule by mouth 2 (two) times a day. Active rosuvastatin 20 MG tablet Take 1 tablet (20 mg total) by mouth daily. Active OXYGENIndications :Chronic respiratory failure with hypoxia (CMS/HCC HHS/HCC) 2 L/min with activity and sleep 1 Device 02/10/20 22 Active CPAP DEVICE, DME, 1 Device by Does not apply route. AutoPap settin-20 cmH2O with oxygen bleed 2L/min (Provider Plus) Active apixaban (ELIQUIS) 5 MG tabletIndications :Persistent atrial fibrillation (CMS/HCC HHS/HCC) Take 1 tablet (5 mg total) by mouth 2 (two) times daily. 60 tablet 5 05/08/19 24 Active glucosamine-chond roitin 500-400 MG Cap Take 1 capsule by mouth daily. Active metoprolol succinate ER (TOPROL-XL) 25 MG 24 hr tablet daily. 11/01/19 24 Active furosemide (LASIX) 40 MG tabletIndications :Chronic diastolic CHF (congestive heart failure) (CMS/HCC HHS/HCC) Take 1 tablet (40 mg total) by mouth daily. 90 tablet 3 01/29/20 24 Active omeprazole (PRILOSEC) 40 MG capsuleIndication s:Gastroesophagea l reflux disease without esophagitis TAKE 1 CAPSULE DAILY 90 capsule 3 03/18/20 24 Active carbidopa-levodop a CR (SINEMET CR) 50-200 MG tabletIndications :Parkinson's disease, unspecified whether dyskinesia present, unspecified whether manifestations fluctuate (CMS/HCC HHS/HCC) Take 2 tablets by mouth 2 (two) times daily. 120 tablet 5 08/02/19 25 Active albuterol sulfate HFA 108 (90 Base) MCG/ACT inhalerIndication s:Chronic obstructive pulmonary disease, unspecified COPD type (CMS/HCC HHS/HCC) Inhale 2 puffs into the lungs every 6 (six) hours as needed for Wheezing. 18 g 3 08/06/19 25 Active fluticasone furoate-vilantero l (BREO ELLIPTA) 200-25 MCG/ACT inhalerIndication s:Chronic bronchitis, unspecified chronic bronchitis type (CMS/HCC HHS/HCC) Inhale 1 puff into the lungs daily. 180 each 3 07/13/19 24 025 Discontinued carbidopa-levodop a (SINEMET) 25-100 MG tabletIndications :Parkinson's disease, unspecified whether dyskinesia present, unspecified whether manifestations fluctuate (CMS/HCC HHS/HCC) Take 1 tablet by mouth 3 (three) times daily. 270 tablet 3 09/28/19 24 025 Discontinued carbidopa-levodop a CR (SINEMET CR) 50-200 MG tabletIndications :Parkinson's disease, unspecified whether dyskinesia present, unspecified whether manifestations fluctuate (CMS/HCC HHS/HCC) Take 1 tablet by mouth 2 (two) times daily. 60 tablet 5 07/16/19 25 025 Discontinued(R eorder) Active Problems Problem Noted Date Diagnosed Date Parkinson's disease 09/28/2023 Obstructive sleep apnea 06/13/2022 Atrial fibrillation ([facility]) 02/09/2022 COPD (chronic obstructive pu lmonary disease) ([facility]) 11/03/2021 Asymptomatic bilateral carotid artery stenosis 1 Overview (08/04/2020): Last Assessment & Plan: Minimal and asymptomatic. Repeat carotid Doppler in two years for observation. Ectatic abdominal aorta 01/22/2020 Overview (08/04/2020): Last Assessment & Plan: Associated with chronic distal aortic dissection. Stable. Repeat aortic Duplex in one year. Chronic diastolic CHF (conge stive heart failure) ([facility]) 10/21/2019 Overview (08/04/2020): Last Assessment & Plan: No exertional symptoms but some orthopnea, check BMP. Continue current diuretic regimen pending follow-up BMP. Coronary artery disease of n ative artery of [place] heart with stable angina pectoris 10/31/2018 Overview (02/04/2020): Last Assessment & Plan: Patient underwent a cardiac catheterization October 16, [...] Crestor 20 mg daily. Continue current therapy. Last Assessment & Plan: No angina on current medical therapy the setting previously moderate multivessel coronary disease. Continue aspirin. 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 [place] - [facility]link Complete heart block ([facility]) 9 Overview (02/04/2020): Last Assessment & Plan: Doing well permanent pacing. Hopefully will have improved exercise tolerance with the addition rate responsiveness. Iliac artery aneurysm, right 07/25/2018 Overview (02/04/2020): Last Assessment & Plan: Stable. Repeat Duplex in one year. Elevated parathyroid hormone 09/20/2017 Essential hypertension 02/02/2017 Overview (08/04/2020): Last Assessment & Plan: Patient remains hypertensive [...] weeks with readings. Continue enalapril and metoprolol. BPH (benign prostatic hyperplasia) 02/02/2017 Elevated PSA 02/02/2017 Hyperlipidemia 02/02/2017 Vitamin D deficiency 02/02/2017 Resolved Problems Problem Noted Date Diagnosed Date Resolved Date Entropion of right eyelid 07/07/2022 Overview (01/11/2023): Added automatically from request for surgery [id number] Care Management 07/01/2022 03/03/2023 COVID-19 03/22/2022 04/26/2023 Chronic respiratory failure with hypoxia ([facility] HHS/HCC) 02/09/2022 04/26/2023 Dyspnea on exertion 10/31/2018 04/26/19 24 Overview (08/04/2020): Last Assessment & Plan: Patient reports improvement of his dyspnea on [...] week. However, when reviewing these results in [facility] it is noted that the lab was canceled due to the specimen spilling in transit. Will obtain BMP today to evaluate electrolytes and renal function. Tendonitis of ankle, right 09/03/2018 0 04/26/2023 Nephrolithiasis 02/02/2017 04/05/2018 Encounters Date Type Department Care Team Description 08/05/2024 1:20 PM CDT Office Visit [facility] Medical Group Family & Internal Medicine - [address] [address] Min Mcdaniel MD Follow Up; Hypertension; Benign Prostatic Hypertrophy; Hyperlipidemia; Vitamin D Deficiency; Coronary Artery Disease; CHF; COPD; Atrial Fibrillation; Obstructive Sleep Apnea ; Parkinson's Disease; Fall (Patient reports a fall on 07/05/24 on RT knee. Patient was seen at [facility] ortho clinic and was dx with tibial fx. ) 08/05/2024 Travel 08/01/2024 MyChart Message Enc [facility] Medical [facility] Multispecialty Care - [facility] [address], [address] [place] [address] Jesusita Cespedes MD Possibly increase dose of Carbidopa/Levodopa 07/31/2024 Scan [facility] HEALTH INFO SRVCS Scanned, Doc Med Group 07/23/2024 12:48 PM CDT - 07/23/2024 11:59 PM CDT Hospital Encounter [facility] [place] [address] Tatiana Salvador, NANO Discharge Disposition: Home or Self Care (Routine Discharge) 07/23/2024 Travel 07/15/2024 9:00 AM CDT Office Visit [facility] Medical Group Multispecialty Care - [facility] [address], [address] [place] [address] Jesusita Cespedes MD Follow Up 07/15/2024 Travel 05/30/2024 Scan HEALTH INFO SRVCS Scanned, Doc Med [facility] from Last 3 Months Immunizations Immunization Administration Dates Next Due Arexvy Respiratory Syncytial Virus (RSV, adjuvanted) 0.5 mL, PF 03/14/2023 Fluad influenza vaccine, Cristofer drivalent (aIIV4), Inactivated, adjuvanted, preservative free, 0.5 mL,IM use 03/14/2023 Fluzone High Dose (IIV, triv alent, 0.5mL) 01/16/2024 Fluzone High Dose - >Age 65 (Prefilled Syringe) 02/04/2021,02/04/2020,01/29/2019 Influenza (Generic) 2018,01/04/2017,2011 Influenza Adult (Generic) 01/17/2022,01/31/2018 PFIZER COVID-19 (CALDWELL CAP), MRNA, LNP-S, PF, 30 MCG/0.3 ML LOLY-SUCROSE, IM 07/14/2021 PFIZER COVID-19 (ORIGINAL FORMULATION, PURPLE CAP) mRNA, LNP-S, PF, 30 MCG/0.3 ML DOSE 07/14/2021,12/31/2020,05/13/2020,2020 PFIZER COVID-19 BIVALENT (12 +) mRNA, LNP-S, PF, 30 MCG/0.3 ML DOSE 01/17/2022 Pneumococcal (Pneumovax 23) 04/02/2005 Pneumococcal (Prevnar 13) 01/29/2019 Shingrix 09/21/2023,07/11/2023 Tdap (Boostrix) 12/16/2017 Zoster (Zostavax) [address]237 Unt/0.65Ml 02/04/2012 Family History Medical History Relation Comments Heart Disease Father Early Hearing Loss Mother Heart Disease Mother Stroke Mother Relation Status Comments Father Mother Social History Tobacco Use Types Packs/Day Years Used Date Smoking Tobacco: Former Cigarettes 0 04/03/1962 - 04/03/1977 Passive Smoke Exposure: Past Smokeless Tobacco: Never Tobacco Cessation:Counseling Given: Yes Comments:Non smoker Alcohol Use Standard Drinks/Week Comments [...] Sex Assigned at Male 04/05/2018 2:26 PM UC ARCHITECT Legal Sex Male 7:26 PM CDT Gender Identity Male 04/05/2018 2:26 PM UC ARCHITECT Sexual Orientation Straight 04/05/2018 2: 26 PM UC ARCHITECT Last Filed Vital Signs Vital Sign Reading Time Taken Comments Blood Pressure 124/60 08/05/2024 1:33 PM CDT Pulse 76 08/05/2024 1:33 PM CDT Temperature 36.4 C (97.5 F) 08/05/2024 1:33 PM CDT Respiratory Rate 20 08/05/2024 1:33 PM CDT Oxygen Saturation 98% 08/05/2024 1:33 PM CDT Inhaled Oxygen Concentration - - Weight 90.3 kg (199 lb) 08/05/2024 1:33 PM CDT Height 188 cm (6' 2 ) 08/05/2024 1:33 PM CDT Body Mass Index 25.55 08/05/2024 1:33 PM CDT Plan of Treatment Upcoming Encounters Date Type Department Care Team (Late st Contact Info) Description 08/12/2024 8:40 AM CDT Laboratory Only [facility] Medical Group Family & Internal Medicine [address] [phone] Min Mcdaniel MD [address] [place] [id number] 01/06/2025 8:40 AM CDT Office Visit [facility] Multispecialty Care - [facility] [address], [address] [place] [address] Jesusita Cespedes MD [address] [place] [address] 02/10/2025 10:00 AM UC ARCHITECT Office Visit [facility] Family & Internal Medicine - [address] [phone] Min Mcdaniel MD [address] [place] [id number] Health Maintenance Due Date Last Done Comments ASCVD Statin 1939 Annual Medicare Wellness Visit 02/15/2004 ASCVD LDL 01/12/2024 01/11/2023, 09/01, 02/04/2021, Additional history exists COVID-19 Vaccine ( season) 2025 04/27/2023, 01/17/2022, 07/14/2021, Additional history exists Postponed from 12/03/2023 (Going to Outside Clinic) DTaP, Tdap and Td Vaccines (2 - Td or Tdap) 12/17/2027 12/16/2017 Pneumococcal Vaccine: 50+ Years Completed 01/29/2019, 04/02/2005 RSV Immunization or 60+ Years Completed 03/14/2023 Zoster Vaccines Completed 09/21/2023, 12/2023, 02/04/2012 PHQ-2 (Physician [place]) Completed 07/15/2024 Meningococcal B Vaccine Aged Out No l onger eligible based on patient's age to complete this topic Meningococcal Vaccine Aged Out No alfreda zoya eligible based on patient's age to complete this topic RSV Immunizations Under 20 Months Aged Out No longer eligible based on patient's age to complete this topic Goals Goal Patient Goal Type Associated Problems Recent Progress Patient-Stated? Author Establish Plan for Symptom Monitoring CHF Lifestyle On track(2022 2:12 PM UC ARCHITECT) No Jackie Matthew, RN Note: CHF: Patient [...] Monitoring Afib Lifestyle On track(2022 2:12 PM UC ARCHITECT) No Jackie Matthew, RN Note: Atrial Fibrillation: Patient will recognize [...] you should cut out caffeine. Don't take bfue-ayq-rizcdpe medicines that have caffeine in them. Also avoid medicines with pseudoephedrine. Let your doctor know what medicines you take, including prescription and hect-dzb-ccmxsdv medicines, as well as any supplements. They interfere with some medicines given for AFib. Establish Plan for Symptom Monitoring COPD Lifestyle On track(2022 2:12 PM UC ARCHITECT) No Jackie Matthew, RN Note: COPD: Patient will recognize symptoms [...] any of your medications without notifying provider Medical Devices Implanted Type Area Flare Stitcher Device Identifier Shelf Expiration Date Model / Serial / Lot Ra Lead-08/27/2018 Implanted:Qty: 1 on 08/27/2018 by Sanjeev León MD Lead Implant Right: Atrium [employer] CARDIAC RHYTHM AND HEART FAILURE - DIV M 5076-52 / [id number] / Rv Lead-08/27/2018 Implanted:Qty: 1 on 08/27/2018 by Sanjeev León MD Lead Implant Right: Ventricle [employer] CARDIAC RHYTHM AND HEART FAILURE - DIV M 5076-58 / [id number] / Pacemaker-2018 Implanted:Qty: 1 on 08/27/2018 by Sanjeev León MD Chest [employer] CARDIAC RHYTHM AND HEART FAILURE - DIV M [id number] / [id number] / Description:MRI Conditional under following conditions: Static magnetic field of 1.5 T or 3 T, Max spatial gradient field of 2000 Gauss/cm, max slew rate of 200 T/m/s , 1.5 T max whole body REMINGTON or 2 W/kg in Normal Operating Mode, Head REMINGTON 3.2 W/kg or less; 3T REMINGTON must be B1+ERICK of 2.8 mT or less if isocenter is below C7, No REMINGTON restrictions on 3 T if isocenter is at or above C7, Implant must be in right or left pectoral Procedures Procedure Name Priority Date/Time Associated Diagnosis Comments MRI CERV SPINE WO CON Routine 07/23/2024 2:20 PM CDT Cervical radiculopathy XR CHEST PA OR AP 1V STAT 07/23/2024 1:13 PM CDT S/P placement of cardiac pacemaker XR THOR SPINE 2V Routine 07/23/2024 1:13 PM CDT Back pain, thoracic LIPID PANEL Routine 01/11/2023 2:07 PM CDT Persistent atrial fibrillation Coronary artery disease of [place] artery of [place] heart with stable angina pectoris from Last 3 Months or Most Recently Relevant to Health Maintenance Results * MRI CERV SPINE WO CON (07/23/2024 2:20 PM CDT) Anatomical Region Laterality Modality Spine Magnetic Resonan ce 07/27/2024 9:39 PM CDT Impressions 07/27/2024 9:43 PM CDT IMPRESSION: 1. 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 Signed: Gerardo Robbins MD Referred By: TATIANA SALVADOR Interpreted By: Gerardo Robbins MD, 07/27/2024 9:39 PM Narrative 07/27/2024 9:43 PM [address] [address] PATIENT NAME: GERARDO GRAHAM EXAM: MRI cervical spine without contrast DATE OF EXAM: 07/23/2024 COMPARISON EXAM: None INDICATION: Chronic neck pain radiating to right shoulder TECHNIQUE: Sagittal T1, T2 FSE and STIR images of the cervical spine obtained along with T2 gradient echo images and 3-D T2 space images. Oblique sagittal T2-weighted images were then obtained along with axial T2 gradient echo and axial 3-D T2 space images. No intravenous contrast. FINDINGS: There is a normal craniovertebral junction. Straightening of the normal cervical lordosis. Cervical vertebral body heights are well-maintained. No significant marrow replacing lesions are noted in the cervical spine. There is no acute prevertebral soft tissue swelling. Cervical spinal cord has normal morphology. No focal cervical spinal cord lesion is demonstrated. C2-3 demonstrates chronic degenerative disc disease with minimal disc bulge, uncovertebral spurring and facet degenerative change causing mild narrowing of the right neural foramen without significant foraminal narrowing. C3-4 demonstrates chronic fusion. No significant Central stenosis or foraminal narrowing. C4-5 demonstrates chronic degenerative disc disease with diffuse disc bulge, uncovertebral spurring and facet degenerative change causing mild to moderate narrowing of both neural foramina. No significant central stenosis. C5-6 demonstrates chronic degenerative disc disease with diffuse disc bulge, uncovertebral spurring and facet degenerative change. No significant Central stenosis or foraminal narrowing. C6-7 demonstrates chronic degenerative disc disease. No significant Central stenosis or foraminal narrowing. C7-T1 demonstrates chronic degenerative disc disease. No significant Central stenosis or foraminal narrowing. No significant acute paraspinous soft tissue abnormality in the cervical region. Procedure Note Gerardo Robbins MD - 07/27/[address] [address] PATIENT NAME: GERARDO GRAHAM EXAM: MRI cervical spine without contrast DATE OF EXAM: 07/23/2024 COMPARISON EXAM: None INDICATION: Chronic neck pain radiating to right shoulder TECHNIQUE: Sagittal T1, T2 FSE and STIR images of the cervical spineobtained along with T2 gradient echo images and 3-D T2 space images.Oblique sagittal T2- weighted images were then obtained along with axial [id number] echo and axial 3-D T2 space images. No intravenous contrast. FINDINGS: There is a normal craniovertebral junction. Straightening of the normalcervical lordosis. Cervical vertebral body heights are well-maintained.No significant marrow replacing lesions are noted in the cervical spine. There is no acute prevertebral soft tissue swelling. Cervical spinal cordhas normal morphology. No focal cervical spinal cord lesion isdemonstrated. C2-3 demonstrates chronic degenerative disc disease with minimal discbulge, uncovertebral spurring and facet degenerative change causing mildnarrowing of the right neural foramen without significant foraminalnarrowing. C3-4 demonstrates chronic fusion. No significant Central stenosis orforaminal narrowing. C4-5 demonstrates chronic degenerative disc disease with diffuse discbulge, uncovertebral spurring and facet degenerative change causing mildto moderate narrowing of both neural foramina. No significant centralstenosis. C5-6 demonstrates chronic degenerative disc disease with diffuse discbulge, uncovertebral spurring and facet degenerative change. Nosignificant Central stenosis or foraminal narrowing. C6-7 demonstrates chronic degenerative disc disease. No significantCentral stenosis or foraminal narrowing. C7-T1 demonstrates chronic degenerative disc disease. No significantCentral stenosis or foraminal narrowing. No significant acute paraspinous soft tissue abnormality in the cervicalregion. IMPRESSION: 1. CHRONIC MULTILEVEL CERVICAL SPINE DEGENERATIVE DISCDISEASE/SPONDYLOSIS DESCRIBED. Signed: Gerardo Robbins MD Referred By: TATIANA SALVADOR Interpreted By: Gerardo Robbins MD, 07/27/2024 9:39 PM Tatiana Salvador FIELD MACHINIST MRI Final Result * XR CHEST PA OR AP 1V (07/23/2024 1:13 PM CDT) Anatomical Region Laterality Modality Chest Radiographic Denise ging 07/23/2024 1:37 PM CDT Impressions 07/23/2024 1:40 PM CDT ======== IMPRESSION: ======== 1. Cardiac pacer seen unchanged in position from prior study with continuous leads. Ordered By: TATIANA SALVADOR Interpreted By: Sundar Coronel MD, 07/23/2024 1:37 PM Narrative 07/23/2024 1:40 PM CDT [place] [address] Examination: Chest Radiograph, 1 view Exam Date/Time: 07/23/2024 12:54 PM Reason For Exam: check pacemaker and leads prior to MRI Comparison: Thoracic spine x-ray of the same date in addition to 12/20/2023 Technique: Single AP view of the chest. Findings: Cardiac pacer seen in place. Pacer leads are continuous. No change from prior studies noted. Cardiomegaly is present. Minimal pleural effusions noted. Calcification of the aorta is consistent with atherosclerotic change.. Procedure Note Sundar Coronel MD - 07/23/2024 [place] [address] Examination: Chest Radiograph, 1 view Exam Date/Time: 07/23/2024 12:54 PM Reason For Exam: check pacemaker and leads prior to MRI Comparison: Thoracic spine x-ray of the same date in addition to12/20/2023 Technique: Single AP view of the chest. Findings: Cardiac pacer seen in place. Pacer leads are continuous. Nochange from prior studies noted. Cardiomegaly is present. Minimal pleuraleffusions noted. Calcification of the aorta is consistent with atherosclerotic change.. ======== IMPRESSION: ======== 1. Cardiac pacer seen unchanged in position from prior study withcontinuous leads. Ordered By: TATIANA SALVADOR Interpreted By: Sundar Coronel MD, 07/23/2024 1:37 PM Tatiana Salvador FIELD MACHINIST GENERAL IMAGING Final Result * XR THOR SPINE 2V (07/23/2024 1:13 PM CDT) Anatomical Region Laterality Modality Spine Radiographic Denise ging 07/23/2024 1:18 PM CDT Impressions 07/23/2024 1:20 PM CDT IMPRESSION: Scoliosis and degenerative disc disease. Referred By: TATIANA SALVADOR Interpreted By: Kalen Thorpe MD, 07/23/2024 1:18 PM Narrative 07/23/2024 1:20 PM CDT [facility] [address] [place], [place] [address] EXAM: XR THOR SPINE DATE: 07/23/2024 No comparison INDICATION: Chronic upper back pain. TECHNIQUE: 2 views, 4 images FINDINGS: Thoracolumbar dextroscoliosis with diffuse degenerative disc disease. Normal vertebral body heights and alignment. Dual-lead left-sided pacemaker. Degenerative disc disease continues diffusely into the visualized lumbar spine. Diffuse arterial calcifications. Procedure Note Kalen Thorpe MD - [facility] [address] [place], [place] [address] EXAM: XR THOR SPINE DATE: 07/23/2024 No comparison INDICATION: Chronic upper back pain. TECHNIQUE: 2 views, 4 images FINDINGS: Thoracolumbar dextroscoliosis with diffuse degenerative discdisease. Normal vertebral body heights and alignment. Vshe-qmdjoijx-swzeb pacemaker. Degenerative disc disease continues diffusely intothe visualized lumbar spine. Diffuse arterial calcifications. IMPRESSION: Scoliosis and degenerative disc disease. Referred By: TATIANA SALVADOR Interpreted By: Kalen Thorpe MD, 07/23/2024 1:18 PM Tatiana Salvador FIELD MACHINIST GENERAL IMAGING Final Result * LIPID PANEL (01/11/2023 2:07 PM CDT) CHOLESTEROL 121 <200 MG/DL 01/11/2023 8:08 PM CD[address] [facility] TRIGLYCERIDES 87 <150 MG/DL 01/11/2023 8:08 PM CD[address] [facility] HDL 46 >40 MG/DL 01/11/2023 8:08 PM CD[address] [facility] LDL-C 58 <100 MG/DL 01/11/2023 8:08 PM CD[address] [facility] VLDL CALCULATION 17 5 - 28 MG/DL 01/11/2023 8:08 PM CD[address] [facility] CHOL/HDL RATIO 2.6 0.0 - 4.0 01/11/2023 8:08 PM [address] [facility] LDL/HDL 1.3 0.41 - 2.13 01/11/2023 8:08 PM CD[address] [facility] NON HDL CHOLESTEROL 75 <140 MG/DL 01/11/2023 8:[address] [facility] 01/11/2023 2:07 PM CDT Neil Machado DO LABORATORY Final Re sult [facility] [address] [place] [address], from Last 3 Months or Most Recently Relevant to Health Maintenance Insurance MEDICARE [facility] Care Teams Installation And Service Technician Relationship Specialty Start Date End Date Min Mcdaniel MD [facility] [place] [address] PCP - General INTERNAL MEDICINE 01/31/18 Alicia Davis, PRINCIPAL AUTOMATION ENGINEER [address] [place] [address] Rail Equipment Operator ROLLER COASTER DESIGNER 07/07/22
--- OUTSIDE RECORDS SUMMARY | 2024-08-10 12:58 | XMS_ITS | Encounter Summary ---
Author Organization [facility] Address [address] [place] [address] Care Team Providers Care It Communications Manager Name Role Phone Min Mcdaniel MD Primary Care Provider [phone] Encounter Details Date Type Department Care Team (Late st Contact Info) Description 09/05/2019 Lab Requisition [facility] DermPath Lab [address] [facility] [place] [address] Kate Melton MD [address] [facility] [address] [place] [address] Social History Tobacco Use Types Packs/Day Years [...] Priority Date/Time Associated Diagnosis Comments DERMATOPATHOLOGY Routine 09/04/2019 12:0 0 AM CDT documented in this encounter Results * DERMATOPATHOLOGY (09/04/2019 12:00 AM CDT) Case Report Dermatopathology Report Case: [id number] Authorizing Provider: Kate Melton MD Collected: 09/04/2019 12:00 AM Ordering Location: [facility] DermPath Lab Received: 09/05/2019 12:33 PM Pathologist: Ashley Reynoso MD Specimen: Skin, left arm 0 5:24 PM CDT DERMATOPATHOLOGY LABORATORY Final Diagnosis Specimen A. 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 The specimen consists of a shave biopsy measuring 8x7x3 mm. Jar 0. 0 5:24 PM CDT DERMATOPATHOLOGY LABORATORY Microscopic Description Specimen A. SKIN, left arm: There is hyperkeratosis alternating with parakeratosis. There is epidermal hyperplasia with disorderly maturation of keratinocytes with nuclear pleomorphism confined to the lower half of the epidermis. 0 5:24 PM CDT DERMATOPATHOLOGY LABORATORY Disclaimer An external and internal positive and negative controls are appropriate for the histochemical, immunohistochemical and immunofluorescence stain(s) in this case (if any), except where stated explicitly. The performance characteristics of the stain(s) cited in this report were developed and its performance characteristic determined by the Dermatopathology Laboratory at [facility], directed by Dr. Christen Reynoso. These tests need not be, and therefore are not, approved by the [place] Food and Drug Administration. The tests are used for clinical purposes. Billing Codes Specimen Charges Stain Charges 74516 1 0 5:24 PM CDT DERMATOPATHOLOGY LABORATORY Embedded Images 0 5:24 PM CDT DERMATOPATHOLOGY LABORATORY Pathology/Cytolog y TISSUE SPECIMEN FROM SKIN / Unknown 09/04/2019 09/05/2019 12:33 PM CDT Kate Melton MD LAB - PATHOLOGY/CYTOLOGY ORD ERABLES Final Result DERMATOPATHOLOGY LABORATORY [facility] - Department of Dermatology [employer] Aneta/[address] [phone] documented in this encounter Visit Diagnoses Not on filedocumented in this encounter Care Teams It Communications Manager Relationship Specialty Start Date End Date Min Mcdaniel MD PCP - General 02/13/18 documented as of this encounter
--- OUTSIDE RECORDS SUMMARY | 2024-08-10 12:58 | XMS_ITS | Encounter Summary ---
Author Organization [facility] Address [address] [facility] [place] [address] Care Team Providers Care Shipping Clerk/Admin Name Role Phone Min Mcdaniel MD Primary Care Provider [phone] Encounter Details Date Type Department Care Team (Late st Contact Info) Description 05/08/2018 Lab Requisition [facility] Care DermPath Lab [address] [facility] [place] [address] Kate Melton MD [address] [facility] 3 [place] [address] Social History Tobacco Use Types Packs/Day Years [...] Priority Date/Time Associated Diagnosis Comments DERMATOPATHOLOGY Routine 05/07/2018 12:0 0 AM WEAVING INSTRUCTOR documented in this encounter Results * DERMATOPATHOLOGY (05/07/2018 12:00 AM WEAVING INSTRUCTOR) Case Report Dermatopathology Report Case: [id number] Authorizing Provider: Kate Melton MD Collected: 05/07/2018 12:00 AM Pathologist: Aissatou York MD Received: 05/08/2018 07:05 AM Specimen: Skin, right parietal scalp 9 2:49 PM WEAVING INSTRUCTOR DERMATOPATHOLOGY LABORATORY Final Diagnosis Specimen A. SKIN, right parietal scalp: DERMAL SCAR - RESIDUAL TUMOR IS NOT IDENTIFIED (L90.5) 2:[address] [facility] DERMATOPATHOLOGY LABORATORY Clinical History Biopsy proven. 2:[address] [facility] DERMATOPATHOLOGY LABORATORY Gross Description Specimen A: Received is one formalin filled container labeled with the patient's name and designated right parietal scalp.The specimen consists of an ellipse measuring [id number] and is oriented with the notch at the 12 o'clock position, not labeled on the requisition. The epidermal surface consists of a centrally located 6x6mm previous biopsy site. The 12 to 6 o'clock margin is inked green. The 6 o'clock to 12 o'clock margin is inked black. The 12 o'clock tip is submitted in cassette 1. The 6 o'clock tip is submitted in cassette 2. The remainder of the ellipse is serially sectioned and submitted in cassettes 3-4. Jar 0. 2:[address] [facility] DERMATOPATHOLOGY LABORATORY Microscopic Description Specimen A. SKIN, right parietal scalp: There are fibroblasts and collagen bundles oriented parallel to the skin surface. There are elongated blood vessels, some of which are oriented perpendicular to the skin surface. No residual tumor is identified. 2:[address] [facility] DERMATOPATHOLOGY LABORATORY Disclaimer An external and internal positive and negative controls are appropriate for the histochemical, immunohistochemical and immunofluorescence stain(s) in this case (if any), except where stated explicitly. The performance characteristics of the stain(s) cited in this report were developed and its performance characteristic determined by the Dermatopathology Laboratory at [facility], directed by Dr. Christen Reynoso. These tests need not be, and therefore are not, approved by the [place] Food and Drug Administration. The tests are used for clinical purposes. Billing Codes Specimen Charges Stain Charges 78558 1 2:[address] [facility] DERMATOPATHOLOGY LABORATORY Embedded Images 2:[address] [facility] DERMATOPATHOLOGY LABORATORY Pathology/Cytolog y TISSUE SPECIMEN FROM SKIN / Unknown 05/07/2018 05/08/2018 7:[address] [facility] us Kate Melton MD LAB - PATHOLOGY/CYTOLOGY ORD ERABLES Final Result DERMATOPATHOLOGY LABORATORY [facility] - Department of Dermatology [facility] [facility], 5th Floor Lab [address] [phone] documented in this encounter Visit Diagnoses Not on filedocumented in this encounter Care Teams Shipping Clerk/Admin Relationship Specialty Start Date End Date Min Mcdaniel MD PCP - General 02/13/18 documented as of this encounter
--- OUTSIDE RECORDS SUMMARY | 2024-08-10 12:58 | XMS_ITS | Referral Summary ---
Author Organization [facility] Address [address] [place] [address] Care Team Providers Care Caponizer Name Role Phone Min Mcdaniel MD Primary Care Provider Porfirio Ronquillo MD Unavailable Sanjeev León MD Unavailable Porfirio Ronquillo MD Unavailable [phone] Carlos Moya MD Unavailable Gabriel Tanner OD Unavailable Encounters Date Type Department Care Team Description 08/01/[address] [facility] Medical Group Cardiology [address] [facility] [address] [place] [address] Sanjeev León MD 07/12/2024 Results Follow-Up [facility] Orthopaedic Surgery [address] [facility] 1st Floor [address] [place] [address] Nabil Wagner MD 07/12/2024 [facility] [address] [facility] [address] [place] [address] Results 07/12/2024 [facility] [address] [facility] [address] [place] [phone] Nabil Wagner MD Call Back 07/12/2024 Telephone [facility] [address] [place] [address] [place] [address] Nabil Wagner MD Appointment 07/12/2024 2:58 PM CDT - 07/12/2024 11:59 PM CDT Hospital Encounter [facility] Radiology at [address] [address] Acute pain of right knee Discharge Disposition: Discharge to home or self care 07/12/2024 2:27 PM CDT - 07/12/2024 11:59 PM CDT Hospital Encounter [facility] Radiology at [address] [address] Acute pain of right knee Discharge Disposition: Discharge to home or self care 07/12/2024 2:15 PM CDT Office Visit [facility] [address] [place] [phone] Nabil Wagner MD Acute pain of right knee (Primary Dx) 05/14/2024 8:45 AM DIVISION ORDER TECHNICIAN Ancillary Procedure [facility] Medical Group Cardiology [address] [facility] [address] [place] [phone] Pacemaker (Primary Dx); Complete heart block (HCC) from Last 3 Months Allergies Active Allergy Reactions Criticality Noted Date Comments Iodine Rash,Unknown Medium 02/02/2017 IV Contrast Other Other (See comments) Low 08/22/2023 Sulfa (Sulfonamide Antibiotics) Rash Medium 07/02/2018 Medications kyxpv-7-jnn-epa- dpa-fish oil 1,050-1,200 mg capsuleIndicatio ns:supplement Take [...] daily 30 tablet 1 4 025 Discontin ued(Alex cristina order) Active Problems Problem Noted Date [...] (07/07/2022): Added automatically from request for surgery [id number] Eyelid lesion 07/07/2022 Overview (07/07/2022): Added automatically from request for surgery [id number] Obstructive sleep apnea 06/13/2022 Atrial fibrillation 02/09/2022 COPD (chronic obstructive pulmonary disease) 06/2021 Mixed hyperlipidemia 04/20/2020 Assessment & Plan (10/19/2020 1:12 PM CDT): Controlled on current statin therapy and diet. Assessment & Plan (04/20/2020 1:55 PM DIVISION ORDER TECHNICIAN): Well controlled on current statin therapy diet, [...] 10/21/2019 Assessment & Plan (04/20/2020 1:54 PM DIVISION ORDER TECHNICIAN): No exertional symptoms but some orthopnea, check BMP. Continue current diuretic regimen pending follow-up BMP. Assessment & Plan (10/21/2019 1:45 PM CDT): Symptomatic in improvement with furosemide, over, appears to be a bit on the dry side. Will switch him to every other day. Coronary artery disease of n ative artery of [place] heart with stable angina pectoris 10/31/2018 Assessment & Plan (10/19/2020 1:11 PM CDT): No angina on current therapy the setting of angiographically moderate multivessel disease. Continue statin Assessment & Plan (04/20/2020 1:55 PM DIVISION ORDER TECHNICIAN): No angina on current medical therapy setting [...] week. However, when reviewing these results in [facility] it is noted that the lab was canceled due to the specimen spilling in transit. Will obtain BMP today to evaluate electrolytes and renal function. Nonspecific abnormal function study, cardiovascu lar 10/11/2018 Overview (10/11/2018): Added automatically from request for surgery [id number] Pacemaker 08/28/2018 Overview (08/28/2018): Medtronic DDD [place] MRI pacemaker implanted on 08/27/18 for CHB. Romelia - Carefauzia Complete heart block 08/26/2018 Assessment & Plan (10/19/2020 1:11 PM CDT): Doing well permanent pacing Assessment & Plan (04/20/2020 1:54 PM DIVISION ORDER TECHNICIAN): Doing well permanent pacing Assessment & Plan [...] with repeat Duplex scan in one year. Immunizations Immunization Administration Dates Next Due Influenza, Trivalent, High D ose, Split, Preservative Free, Intramuscular 01/03/2017 Social History Tobacco Use Types Packs/Day Years Used Date Smoking Tobacco: Former Cigarettes 0.5 29.5 1 960 - 10/16/1988 Passive Smoke Exposure: Never Smokeless Tobacco: Never Tobacco Cessation:Counseling Given: Not Answered Alcohol Use Standard Drinks/Week Comments Yes 0 (1 standard drink = 0.6 oz pur e alcohol) occasionally [facility] Utilities Answer Date Recorded In the past 12 months has th e electric, gas, oil, or water company threatened to [...] place to sleep or slept in a residential (including now)? No 08/10/2023 Personal Safety Answer Date Recorded Have you ever been in or are you currently in a harmful physical or emotional relationship or is someone making you feel afraid or unsafe? Denies 08/09/2023 Sex and Gender Information Value Date Recorded Sex Assigned at Not on file Legal Sex Male 9:30 PM DIVISION ORDER TECHNICIAN Gender Identity Not on file Sexual Orientation [...] 07/12/2024 2:21 PM CDT Plan of Treatment Not on file Medical Devices Implanted Type Area Laborer Pole Crew Device Identifier Shelf Expiration Date Model / Serial / Lot Medtronic Cardiac Rhythm Mgmt [id number] Yadira S Mri Surescan 50.8x46.6mm 2 Chamber 7.4mm Pacemaker 22.5gm - [id number] - [id number] Implanted:Qty: 1 on 08/27/2018 by Sanjeev León MD at [facility] Pacemaker Medtronic Cardiac Rhythm Mgmt [id number] 10/29/2019 [id number] / [id number] / Medtronic Cardiac Rhythm Mgmt 5076-58 Capsurefix Novus 6.2fr 2mm 58cm Bipolar Screw In Implantable - [id number] - [id number] Implanted:Qty: 1 on 08/27/2018 by Sanjeev León MD at [facility] Medtronic Cardiac Rhythm Mgmt [id number] 03/19/2020 5076-58 / [id number] / Medtronic Cardiac Rhythm Mgmt 5076-52 Capsurefix Novus 6.2fr 2mm 52cm Bipolar Screw In Implantable Latex Free - [id number] - [id number] Implanted:Qty: 1 on 08/27/2018 by Sanjeev León MD at [facility] Medtronic Cardiac Rhythm Mgmt [id number] 04/30/2020 5076-52 / [id number] / Description:Right atrial idris d Procedures Procedure Name Priority Date/Time Associated Diagnosis Comments CT KNEE RIGHT WO CONTRAST Schedule Routine, Read Routine (OP Routine) 07/12/2024 3:23 PM CDT Acute pain of right knee XR KNEE RIGHT 3 VIEWS Schedule Routine, Read Routine (OP Routine) 07/12/2024 2:34 PM CDT Acute pain of right knee DEVICE CHECK - REMOTE Routine 05/14/2024 9:12 AM DIVISION ORDER TECHNICIAN Complete heart block (HCC) from Last 3 [...] it. Electronically signed by: Pj Estrada M.D. Nabil Wagner MD IMG CT PROCEDURES Final [...] the left knee. Procedure Note Al Freeman, DO - 07/12/2024 EXAMINATION: XR KNEE RIGHT 3 [...] DEVICE CHECK - REMOTE (05/14/2024 9:12 AM DIVISION ORDER TECHNICIAN) Anatomical Region Laterality Modality Other Narrative 06/03/2024 9:35 AM DIVISION ORDER TECHNICIAN Table formatting from the original result was [...] to FÁTIMA Episodes last 90 days/Comments: AF [place] 100 % No new ventricular events. NORMAL DEVICE FUNCTION PROGRAMMED MEDICATIONS: Anti-coagulant(s): Aspirin 81 mg, Eliquis 5 mg twice a day Anti-arrhythmic(s): Toprol-XL 25 mg daily PLAN: 1) Medtronic Pacemaker evaluation 2) Medtronic remote transmission scheduled in 3 months. 3) Programming appropriate for device measurements Lashon Delanty, RN Sanjeev León MD CV CARDIAC SERVICES PROCE ALEKSANDR Final Result from Last 3 Months Insurance MEDICARE STANDARD LIFE STANDARD LIFE MEDICARE YULAN LIFE Advance Directives For more information, please contact: [phone] * Full Code (Latest Code Status on File) Date Activated Date Inactivated Comments 08/09/2023 1:36 AM 08/11/2023 10:08 PM * Full Code Date Activated Date Inactivated Comments 10/16/2018 10:33 AM 10/16/2018 6:56 PM * Full Code Date Activated Date Inactivated Comments 08/26/2018 5:23 PM 08/28/2018 7:25 PM * Full Code Date Activated Date Inactivated Comments 07/03/2018 3:55 AM 07/05/2018 8:57 PM Care Teams Caponizer Relationship Specialty Start Date End Date Min Mcdaniel MD [address] [place] [address] PCP - General 07/02/18 Porfirio Ronquillo MD [address] [place] [address] Referring Physician Surgery 07/25/18 Sanjeev León MD [address] [place] [address] Consulting Physician Cardiology 08/28/18 Porfirio Ronquillo MD [address] [place] [address] Referring Physician Surgery 01/22/20 Carlos Moya MD [address] [place] [address] Ophthalmology 08/31/22 Gabriel Tanner OD [address] [place] [address] Optometry 11/02/22
[2024-08-10 13:08] LABS: INR 1.3; Partial Thromboplastin Time 32.1 Seconds (22.3-36.8); Prothrombin Time 16.7 Seconds (11.1-14.7)
[2024-08-10 13:17] LABS: Alanine Aminotransferase 10 U/L (6-50); Albumin Level 3.6 g/dL (3.5-5.1); Alkaline Phosphatase 97 U/L (38-126); Anion Gap 8 mmol/L (4-12); Aspartate Amino Transferase 22 U/L (17-59); Bilirubin,Total 1.7 mg/dL (0.2-1.3); Blood Urea Nitrogen 20 mg/dL (9-20); Calcium 8.7 mg/dL (8.4-10.2); Carbon Dioxide 30 mmol/L (22-30); Chloride 102 mmol/L (98-107); Estimated CRCL calculation 61 ml/min; Estimated Glomerular Filt Rate > 60; Glucose 118 mg/dL (65-110); Potassium 3.2 mmol/L (3.4-5.0); Sodium 140 mmol/L (137-145)
[2024-08-10 13:29] LABS: Troponin I < 0.012 ng/mL (0.000-0.034)
[2024-08-10 13:48] LABS: Thyroid Stimulating Hormone Reflex 0.854 uIU/mL (0.465-4.68)
[2024-08-10 15:29] LABS: Add Urine Microscopic? YES; Appearance Urine Clear (Clear); Bacteria Urine None Seen /hpf; Bilirubin Urine Negative (Negative); Blood Urine Negative (Negative); Color Urine Yellow (Yellow); Glucose Urine UA Negative (Negative); Hyaline Casts Urine Present /lpf; Ketones Urine Trace mg/dL (Negative); Leukocyte Esterase Ur 1+ LEU/UL (Negative); Nitrate Urine Negative (Negative); Protein Urine Negative (Negative); RBC Urine 0-2 /hpf (0-2); Specific Grav Ur 1.015 (1.001-1.035); Squamous Epithelial Cell Urine None Seen /hpf (Few); pH Urine 5.5 (5.0-9.0)
== END 2024-08-10 16:47 | disposition home or self-care (01) ==
PROVIDERS: Emergency Provider Student in an Organized Health Care Education/Training Program; PCP Internal Medicine
DX: H53.8 Other visual disturbances (principal); R82.998 Other abnormal findings in urine; I48.20 Chronic atrial fibrillation, unspecified; I10 Essential (primary) hypertension; Z95.0 Presence of cardiac pacemaker; Z79.01 Long term (current) use of anticoagulants
CPT/HCPCS: 36415; 70450; 71045; 80053; 81001; 84443; 84484; 85025; 85610; 85730; 87086; 93005; 99284